=== PATIENT | male | born 1935 | race Caucasian/White ===

== ENCOUNTER 2018-04-26 08:44 | Emergency (ER) | payer OTHER, MEDICARE ==
[2018-04-26] MEDS ORDERED: Sodium Chloride 0.9% 10 ML Syringe FLUSH PRN (08:52)
[2018-04-26] MEDS ORDERED: Sodium Chloride 0.9% 1,000 ML IV ONE (08:54)
[2018-04-26] MEDS ORDERED: Ondansetron 4 MG/2 ML SDV IVPUSH ONE (08:54)
[2018-04-26] MEDS ORDERED: cefTRIAXone 2 GM Vial IVPUSH ONE (09:10)
--- NOTE | 2018-04-26 09:45 | EDM.PDOC ---
ED HPI GENERAL MEDICAL PROBLEM - General Chief Complaint: Fever Stated Complaint: ER Time Seen by Provider: 04/26/18 08:50 Source of Information: Reports: Patient, Old Records, RN, RN Notes Reviewed History Limitations: Reports: Other (poor historian) - History of Present Illness INITIAL COMMENTS - FREE TEXT/NARRATIVE: Patient is brought to the emergency room at [facility] for lethargy, fevers , possible infection. The patient is a resident at [facility]. The caregiving staff there noticed the patient had a fever of 104 orally. The patient had stated that he did not feel very well. Therefore the ambulance was called and the patient was brought to the emergency room for further assessment and treatment. The patient currently denies any chest pain. The patient denies any shortness of breath. The patient states that he does feel hot. The patient states he feels somewhat confused. The patient denies any diarrhea but has had emesis upon arrival to the emergency room. The patient has not had any focal neurological deficits. The patient is currently being seen by the wound clinic at the [facility]. The patient is a poorly compliant diabetic and has developed severe diabetic neuropathy and now has developed ulcers on his right foot. 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 Onset: Unknown/Unsure - Related Data Allergies Allergy/AdvReac Type Severity Reaction Status Date / Time No Known Allergies Allergy Verified 04/26/18 08:51 ED ROS GENERAL - Review of Systems Review Of Systems: See Below Constitutional: Reports: Fever, Chills, Weakness Respiratory: Denies: Shortness of Breath, Cough Cardiovascular: Denies: Chest Pain, Palpitations GI/Abdominal: Reports: Nausea. Denies: Abdominal Pain, Vomiting Skin: Reports: Wound (right foot) Neurological: Reports: Confusion ED EXAM, SEPSIS - Physical Exam Exam: See Below Exam Limited By: No Limitations General Appearance: Alert, No Apparent Distress Respiratory/Chest: No Respiratory Distress, Lungs Clear, Decreased Breath Sounds Cardiovascular: Regular Rate, Rhythm, Tachycardia Peripheral Pulses: 2+: Radial (L), Radial (R) GI/Abdominal Exam: Soft, Non-Tender, Abnormal Bowel Sounds (Hypoactive) Neurological: Alert, Disoriented Skin: Warm, Dry, Wound/Incision (Diabetic ulcers to the right lower extremity/ foot) EKG INTERPRETATION EKG Date: 04/26/18 Time: 09:55 Rhythm: Other Rate (Beats/Min): 105 [place]: Normal P-Wave: Present QRS: Normal ST-T: Normal QT: Normal AK/PQ Interval: 0.22 Comparison: NA - No Prior EKG EKG Interpretation Comments: 1. Sinus Tachycardia with 1st degree AVB 2. Possible right ventricular conduction delay 3. Anterolateral TN, age indeterminate Course - Vital Signs Last Recorded V/S: Last Vital Signs Temp 39.8 C H 04/26/18 10:01 Pulse 122 H 04/26/18 08:44 Resp 24 H 04/26/18 08:44 BP 116/69 04/26/18 08:44 Pulse Ox 94 L 04/26/18 08:44 - Orders/Labs/Meds Orders: Active Orders 24 hr Category Date Time Status EKG 12 Lead [EKG Documentation Completion] [RC] STAT Care 04/26/18 08:52 Active Chest 1V Frontal [CR] Stat Exams 04/26/18 08:51 Taken CULTURE BLOOD [BC] Stat Lab 04/26/18 09:07 Results CULTURE BLOOD [BC] Stat Lab 04/26/18 09:14 Results Sodium Chloride 0.9% [Saline Flush] Med 04/26/18 08:52 Active 10 ml FLUSH ASDIRECTED PRN Blood Culture x2 Reflex Set [OM.PC] Stat Oth 04/26/18 08:51 Ordered Peripheral IV Insertion Adult [OM.PC] Routine Oth 04/26/18 08:52 Ordered Medication Orders Sodium Chloride (Saline Flush) 10 ml FLUSH ASDIRECTED PRN PRN Reason: Keep Vein Open Labs: Laboratory Tests 04/26/18 04/26/18 04/26/18 Range/Units 09:07 09:07 09:07 WBC 21.4 H* (4.0-10.0) x10^3/uL RBC 4.43 L (4.5-6.0) x10^6/uL Hgb 13.6 L (14.0-18.0) g/dL Hct 39.9 L (40.0-52.0) % MCV 90.1 (78.0-93.0) fL MCH 30.7 (26.0-32.0) pg MCHC 34.1 (32.0-36.0) g/dL RDW Coeff of Karen 13.2 (10.0-15.0) % Plt Count 285 (130-400) x10^3/uL Add Manual Diff Yes Neutrophils % (Manual) 94 H (50-80) % Band Neutrophils % 1 (0-6) % Lymphocytes % (Manual) 5 L (25-50) % Platelet Estimate Adequate Sodium 138 (136-145) mmol/L Potassium 4.4 (3.5-5.1) mmol/L Chloride 105 (98-107) mmol/L Carbon Dioxide 22 (21-32) mmol/L Anion Gap 15.4 (10-20) mmol/L BUN 21 H (7-18) mg/dL Creatinine 1.7 H (0.70-1.30) mg/dL Est Cr Clr Drug Dosing TNP Estimated GFR (MDRD) 39 Glucose 204 H (74-106) mg/dL Lactic Acid 2.1 H* (0.4-2.0) mmol/L Calcium 8.5 (8.5-10.1) mg/dL Corrected Calcium 9.14 (8.5-10.1) mg/dL Total Bilirubin 0.8 (0.2-1.0) mg/dL AST 19 (15-37) U/L ALT 15 L (16-63) U/L Alkaline Phosphatase 121 H (46-116) U/L C-Reactive Protein 11.4 H (<=0.9) mg/dL Total Protein 7.2 (6.4-8.2) g/dL Albumin 3.2 L (3.4-5.0) g/dL Globulin 4.0 Albumin/Globulin Ratio 0.80 Meds: Medications Generic Name Dose Route Start Last Admin Trade Name Freq PRN Reason Stop Dose Admin Sodium Chloride 10 ml 04/26/18 08:52 Saline Flush FLUSH ASDIRECTED PRN Keep Vein Open Discontinued Medications Generic Name Dose Route Start Last Admin Trade Name Freq PRN Reason Stop Dose Admin Acetaminophen 1,000 mg 04/26/18 09:57 04/26/18 10:01 Tylenol Extra Strength PO 04/26/18 09:58 1,000 mg ONETIME ONE Administration Ceftriaxone Sodium 2 gm 04/26/18 09:10 04/26/18 09:15 Rocephin IVPUSH 04/26/18 09:11 2 gm STAT ONE Administration Sodium Chloride 1,000 mls @ 999 mls/hr 04/26/18 08:54 04/26/18 09:08 Normal Saline IV 04/26/18 09:54 999 mls/hr ONETIME ONE Administration Ondansetron HCl 4 mg 04/26/18 08:54 04/26/18 09:09 Zofran IVPUSH 04/26/18 08:55 4 mg ONETIME ONE Administration - Radiology Interpretation Free Text/Narrative:: CXR: Bibasilar hypoventilatory changes; slight increase in pulmonary vascularity See scanned report in EMR Departure - Departure Time of Disposition: 10:56 Disposition: DC/Tfer to [facility] 02 Condition: Fair Clinical Impression: Dehydration, Foot infection Sepsis Qualifiers: Sepsis type: sepsis due to unspecified organism Qualified Code(s): A41.9 - Sepsis, unspecified organism Uncontrolled diabetes mellitus Qualifiers: Diabetes mellitus type: type 1 Diabetes mellitus complication status: with skin complications Diabetes mellitus complication detail: with foot ulcer Qualified Code(s): E10.621 - Type 1 diabetes mellitus with foot ulcer; L97.509 - Non-pressure chronic ulcer of other part of unspecified foot with unspecified severity; E10.65 - Type 1 diabetes mellitus with hyperglycemia - Discharge Information Forms: Interfacility Transfer [facility] ED Communication - ED Communication Date/Time Date: 04/26/18 Time Called: 10:48 - Discussed Case With (1) Discussed Case With (1): Admitting Provider (Dr. Tran, Hospitalist.) - Conversation Summary Admitting Provider Agreed to Patient's Admission: Yes Patient Aware of Amendments fo Care Plan: Yes - Problem List Review Problem List Initiated/Reviewed/Updated: Yes - My Orders Last 24 Hours: My Active Orders 04/26/18 08:51 Chest 1V Frontal [CR] Stat Blood Culture x2 Reflex Set [OM.PC] Stat 04/26/18 08:52 EKG 12 Lead [EKG Documentation Completion] [RC] STAT Sodium Chloride 0.9% [Saline Flush] 10 ml FLUSH ASDIRECTED PRN Peripheral IV Insertion Adult [OM.PC] Routine 04/26/18 09:07 CULTURE BLOOD [BC] Stat 04/26/18 09:14 CULTURE BLOOD [BC] Stat - Assessment/Plan Last 24 Hours: My Active Orders 04/26/18 08:51 Chest 1V Frontal [CR] Stat Blood Culture x2 Reflex Set [OM.PC] Stat 04/26/18 08:52 EKG 12 Lead [EKG Documentation Completion] [RC] STAT Sodium Chloride 0.9% [Saline Flush] 10 ml FLUSH ASDIRECTED PRN Peripheral IV Insertion Adult [OM.PC] Routine 04/26/18 09:07 CULTURE BLOOD [BC] Stat 04/26/18 09:14 CULTURE BLOOD [BC] Stat Assessment:: Sepsis Dehydration Right foot infection Uncontrolled DM Plan: Case discussed with Dr. Tran, Hospitalist. Patient accepted in transfer as the [facility] does not have any bed availability. Patient will be transferred via BLS ground. Family aware.
[2018-04-26 09:48] LABS: CHLORIDE,CL 105 mmol/L (98-107); SODIUM,NA 138 mmol/L (136-145)
[2018-04-26] MEDS ORDERED: Acetaminophen 500 MG Tab PO ONE (09:57)
== END 2018-04-26 12:10 | disposition short-term general hospital (02) ==
LOC: VM.ED 08:44
DX: A41.9 Sepsis, unspecified organism (principal); E10.621 Type 1 diabetes mellitus with foot ulcer; L97.519 Non-pressure chronic ulcer of other part of right foot with unspecified severity; L08.9 Local infection of the skin and subcutaneous tissue, unspecified; E86.0 Dehydration
CPT/HCPCS: 36415; 71045; 80053; 83605; 85025; 86140; 87040; 87077; 93005; 96361; 96374; 96375; 99284; 99285; A9270; J0696; J2405; J7030

== ENCOUNTER 2018-05-01 11:24 | Inpatient (IN) | payer OTHER, MEDICARE ==
[2018-05-02] MEDS ORDERED: Furosemide 20 MG Tab PO SCH (17:00)
[2018-05-02] MEDS ORDERED: Polyethylene Glycol 3350 Powder 17 GM Packet PO PRN (17:41)
[2018-05-02] MEDS ORDERED: Aluminum Hydroxide/Magnesium Hydroxide/Simethicone Susp 30 ML Cup PO PRN (17:41)
[2018-05-02] MEDS ORDERED: Docusate Sodium 100 MG Cap PO PRN (17:41)
[2018-05-02] MEDS ORDERED: Carvedilol 6.25 MG Tab PO SCH (18:00)
[2018-05-02] MEDS: Carvedilol 6.25 MG Tab PO SCH (18:43)
[2018-05-02] MEDS ORDERED: CEPHALEXIN 500 MG PO SCH (20:00)
[2018-05-02] MEDS: Potassium Chloride 10% 20 MEQ/15 ML Soln 15 ML UD Cup PO SCH (20:13)
[2018-05-02] MEDS: Cephalexin 500 MG Cap PO SCH (20:13)
[2018-05-02] MEDS: Furosemide 20 MG Tab PO SCH (20:14)
[2018-05-03] MEDS ORDERED: Lisinopril 5 MG Tab PO SCH (08:00)
[2018-05-03] MEDS ORDERED: Aspirin 81 MG Tab.EC PO SCH (08:00)
[2018-05-03] MEDS ORDERED: Tamsulosin 0.4 MG Cap.ER PO SCH (08:00)
[2018-05-03] MEDS: INSULIN GLARGINE HUMAN REC ANALOG 100 UNIT/ML SUBCUT SCH (08:47)
[2018-05-03] MEDS: Cephalexin 500 MG Cap PO SCH ×2 (08:49→19:52)
[2018-05-03] MEDS: Carvedilol 6.25 MG Tab PO SCH ×2 (08:49→10:21)
[2018-05-03] MEDS: Furosemide 20 MG Tab PO SCH ×3 (08:49→16:56)
[2018-05-03] MEDS: Lisinopril 5 MG Tab PO SCH ×2 (08:49→10:22)
[2018-05-03] MEDS: Tamsulosin 0.4 MG Cap.ER PO SCH (08:49)
[2018-05-03] MEDS: Aspirin 81 MG Tab.EC PO SCH ×2 (08:50→10:22)
[2018-05-03] MEDS: Potassium Chloride 10% 20 MEQ/15 ML Soln 15 ML UD Cup PO SCH ×2 (08:51→10:22)
--- NOTE | 2018-05-03 12:02 | PCM.HP ---
H&P History of Present Illness - General Date of Service: 05/02/18 Admit Problem/Dx: Admission Diagnosis/Problem Admission Diagnosis/Problem Sepsis Weakness Deconditioning Mild Systolic Dysfunction Uncontrolled Diabetes Mellitus Right lower extremity ulcer CKD Obesity RLS Source of Information: Old Records, RN, RN Notes Reviewed History Limitations: Reports: Other (Poor historian) - History of Present Illness Initial Comments - Free Text/Narative: NOTE: This patient was seen and examined by me as an [facility] provider Elizabeth Allen is an 82 yo male who initially present to the Emergency Room at [facility] on 04/26/2018 for fever, nausea, and just not feeling well. During his ER visit, he was found to be septic with possible source of a right foot ulcer infection. Patient was subsequently transferred to [facility] for definitive care. Patient was seen by IM, Cardiology, Podiatry, ID, and wound clinic for his presenting problems. Cardiology optimized his medications. Echo on 04/27/2018 show a reduced EF of 45-50% with systolic dysfunction. Patient underwent an MRI of the right foot which did not show any osteomyelitis. Per ID, Patient was started on Cephalexin and Azithromax pending BC results. Infectious Disease recommend Zosyn until culture results. Patient was discharge on Keflex 500 mg QID for 5 days. Patient remained hemodynamically stable during his stay at [facility]. Physical and Occupational therapy recommended further therapy with skilled services. Patient is a poor historian. He currently denies any chest pain or SOB. He is having problems with urination. He did have a hardy catheter placed while at [facility] but that was removed on day of discharge. He does not complain of any pain. His appetite has been ok. He appears to be fairly weak and debilitated. Onset of Symptoms: Reports: Unknown/Unsure - Related Data Allergies/Adverse Reactions: Allergies Allergy/AdvReac Type Severity Reaction Status Date / Time No Known Allergies Allergy Verified 05/02/18 16:36 Home Medications: Home Meds Aspirin [Ecotrin] 81 mg PO DAILY 05/02/18 [History] Carvedilol [Coreg] 6.25 mg PO BIDMEALS 05/02/18 [History] Cephalexin 500 mg PO BID 05/02/18 [History] Furosemide [Lasix] 20 mg PO BID 05/02/18 [History] Insulin Glarg,Human.Rec.Analog [Lantus] 40 unit SUBCUT DAILY 05/02/18 [History] Lisinopril [Prinivil] 5 mg PO DAILY 05/02/18 [History] Potassium Chloride [Potassium Chloride Solution] 40 meq PO BID 05/02/18 [History ] Tamsulosin [Tamsulosin 24 Hr] 0.4 mg PO DAILY 05/02/18 [History] Past Medical History HEENT History: Reports: Hard of Hearing Other HEENT History: nonproliferative retinopathy Cardiovascular History: Reports: Heart Failure, High Cholesterol, Hypertension, PVD Gastrointestinal History: Reports: GERD Genitourinary History: Reports: Other (See Below) Other Genitourinary History: CKD Musculoskeletal History: Reports: Amputation, Other (See Below) Other Musculoskeletal History: BKA left leg Neurological History: Reports: Neuropathy, Peripheral, Other (See Below) Other Neuro History: restless legs Endocrine/Metabolic History: Reports: Diabetes Mellitus, Type 3c Dermatologic History: Reports: Other (See Below) Other Dermatologic History: Stage II pressure ulcer to R heel. Venous stasis ulcer to right dorsal foot Social & Family History - Family History Family Medical History: Noncontributory - Tobacco Use Smoking Status *Q: Former Smoker Used Tobacco, but Quit: Yes Month/Year Tobacco Last Used: 44 years ago Tobacco Use Comment: Pt quit smoking 44 years ago, does not need information. - Caffeine Use Caffeine Use: Reports: Coffee - Recreational Drug Use Recreational Drug Use: No - Living Situation & Occupation Living situation: Reports: Assisted Living Occupation: Retired H&P Review of Systems - Review of Systems: Review Of Systems: See Below General: Reports: Weakness. Denies: Fever, Chills Pulmonary: Denies: Shortness of Breath, Cough Cardiovascular: Denies: Chest Pain, Palpitations Gastrointestinal: Denies: Abdominal Pain, Nausea, Vomiting Skin: Reports: Wound Neurological: Reports: Confusion Exam - Exam Exam: See Below - Vital Signs Vital Signs: Last Vital Signs Temp 37.0 C 05/03/18 06:00 Pulse 68 05/03/18 06:00 Resp 19 05/03/18 06:00 BP 141/57 H 05/03/18 06:00 Pulse Ox 96 05/03/18 06:00 Weight: 158.757 kg - Exam Quality Assessment: Skin Breakdown General: Alert, Cooperative. 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 Sloughing of tissue b/t 4th and 5th digits with scant purulence. Bottom of foot 7 x 3.5; scab right lateral 1.5 x 1.7; Right upper anterior leg 1.7 x 2.2; lower lateral leg 1.9 x 2) Neuro Extensive - Mental Status: Alert, Disorientation to Place, Disorientation to Time - Patient Data Lab Results Last 24 hrs: Laboratory Results - last 24 hr 05/02/18 05/02/18 05/03/18 Range/Units 17:14 20:11 06:13 POC Glucose 174 H 237 H 201 H (74-106) mg/dL *Q Meaningful Use (ADM) - VTE *Q VTE Mechanical Contraindications *Q: At Risk for Falls - Problem List (1) Sepsis SNOMED Code(s): 67434340 ICD Code: A41.9 - SEPSIS, UNSPECIFIED ORGANISM Status: Resolved Priority : Medium Current Visit: No Onset Date: ~04/26/18 Qualifiers: Sepsis type: sepsis due to unspecified organism Qualified Code(s): A41.9 - Sepsis, unspecified organism (2) Weakness SNOMED Code(s): 34834443 ICD Code: R53.1 - WEAKNESS Status: Acute Priority: Medium Current Visit : Yes Onset Date: ~04/26/18 (3) Physical deconditioning SNOMED Code(s): 30436459725040 ICD Code: R53.81 - OTHER MALAISE Status: Acute Priority: Medium Current Visit: Yes Onset Date: ~04/26/18 (4) Uncontrolled diabetes mellitus SNOMED Code(s): 526408392, 997284012 ICD Code: E11.65 - TYPE 2 DIABETES MELLITUS WITH HYPERGLYCEMIA Status: Chronic Priority: Medium Current Visit: Yes Qualifiers: Diabetes mellitus type: type 1 Diabetes mellitus complication status: with skin complications Diabetes mellitus complication detail: with foot ulcer Qualified Code(s): E10.621 - Type 1 diabetes mellitus with foot ulcer; L97.509 - Non-pressure chronic ulcer of other part of unspecified foot with unspecified severity; E10.65 - Type 1 diabetes mellitus with hyperglycemia (5) Congestive heart failure SNOMED Code(s): 67599832 ICD Code: I50.9 - HEART FAILURE, UNSPECIFIED Status: Chronic Priority: Medium Current Visit: No Qualifiers: Heart failure type: systolic Heart failure chronicity: chronic Qualified Code(s): I50.22 - Chronic systolic (congestive) heart failure (6) Essential hypertension SNOMED Code(s): 90438602 ICD Code: I10 - ESSENTIAL (PRIMARY) HYPERTENSION Status: Chronic Priority : Medium Current Visit: No (7) Chronic kidney disease SNOMED Code(s): 420681238 ICD Code: N18.9 - CHRONIC KIDNEY DISEASE, UNSPECIFIED Status: Chronic Priority: Medium Current Visit: No Qualifiers: Chronic kidney disease stage: unspecified stage Qualified Code(s): N18.9 - Chronic kidney disease, unspecified (8) Peripheral vascular disease in diabetes mellitus SNOMED Code(s): 18257396, 332673980, 82305230829063 ICD Code: E11.51 - TYPE 2 DIABETES W DIABETIC PERIPHERAL ANGIOPATH W/O GANGRENE Status: Chronic Priority: Medium Current Visit: No (9) Mixed hyperlipidemia SNOMED Code(s): 401815891 ICD Code: E78.2 - MIXED HYPERLIPIDEMIA Status: Chronic Priority: Medium Current Visit: No (10) BPH (benign prostatic hyperplasia) SNOMED Code(s): 455929053 ICD Code: N40.0 - BENIGN PROSTATIC HYPERPLASIA WITHOUT LOWER URINRY TRACT SYMP Status: Chronic Priority: Low Current Visit: No Qualifiers: Lower urinary tract symptom presence: symptoms present Lower urinary tract symptom detail: unspecified Qualified Code(s): N40.1 - Benign prostatic hyperplasia with lower urinary tract symptoms Problem List Initiated/Reviewed/Updated: Yes Orders Last 24hrs: Active Orders 24 hr Category Date Time Status Patient Status [ADT] Routine ADT 05/02/18 17:41 Active Accu Check [Blood Glucose Check, Bedside] [RC] 07,11,17 Care 05/02/18 17:44 Active ,20 Dietary Supplements [RC] 07,17 Care 05/03/18 06:18 Active Height and Weight [RC] 07 Care 05/02/18 17:42 Active Intake and Output [RC] ,18 Care 05/02/18 17:42 Active May Shower [RC] .PRN Care 05/02/18 17:41 Active Oxygen Therapy [RC] .PRN Care 05/02/18 17:41 Active Up ad Jocelin [RC] .PRN Care 05/02/18 17:41 Active VTE/DVT Education [RC] .PRN Care 05/02/18 17:41 Active Vital Signs [RC] , Care 05/02/18 17:41 Active Consult to Case Management [CONS] Routine Cons 05/02/18 17:41 Active OT Evaluation and Treatment [CONS] Routine Cons 05/02/18 17:41 Active PT Evaluation and Treatment [CONS] Routine Cons 05/02/18 17:41 Active Acetaminophen [Tylenol] Med 05/02/18 17:41 Active 650 mg PO Q4H PRN Alum Hydrox/Mag Hydrox/Simeth [Mag-Al Plus] Med 05/02/18 17:41 Active 30 ml PO Q4H PRN Aspirin [Halfprin] Med 05/03/18 08:00 Active 81 mg PO DAILY Carvedilol [Coreg] Med 05/02/18 18:00 Active 6.25 mg PO BIDMEALS Cephalexin [Keflex] Med 05/02/18 20:00 Active 500 mg PO BID Docusate Sodium [Colace] Med 05/02/18 17:41 Active 100 mg PO BID PRN Furosemide [Lasix] Med 05/02/18 20:00 Active 20 mg PO BIDDIURETIC Insulin Glarg,Human.Rec.Analog [LantUS Solostar] Med 05/03/18 08:00 Active 0 units SUBCUT DAILY Lisinopril [Prinivil] Med 05/03/18 08:00 Active 5 mg PO DAILY Ondansetron [Zofran ODT] Med 05/02/18 17:41 Active 4 mg PO Q6H PRN Polyethylene Glycol 3350 [MiraLAX] Med 05/02/18 17:41 Active 17 gm PO DAILY PRN Potassium Chloride [Potassium Chloride Solution] Med 05/02/18 20:00 Active 40 meq PO BID Tamsulosin [Flomax] Med 05/03/18 08:00 Active 0.4 mg PO DAILY Resuscitation Status Routine Resus Stat 05/02/18 17:41 Ordered Medication Orders Acetaminophen (Tylenol) 650 mg PO Q4H PRN PRN Reason: Pain (Mild 1-3)/fever Al Hydroxide/Mg Hydroxide (Mag-Al Plus) 30 ml PO Q4H PRN PRN Reason: Nausea Aspirin (Halfprin) 81 mg PO DAILY [facility] Last Admin: 05/03/18 10:22 Dose: Not Given Carvedilol (Coreg) 6.25 mg PO BIDMEALS [facility] Last Admin: 05/03/18 10:21 Dose: Not Given Admin: 05/02/18 18:43 Dose: 6.25 mg Cephalexin (Keflex) 500 mg PO BID [facility] Stop: 05/06/18 08:01 Last Admin: 05/03/18 08:49 Dose: 500 mg Admin: 05/02/18 20:13 Dose: 500 mg Docusate Sodium (Colace) 100 mg PO BID PRN PRN Reason: Constipation Furosemide (Lasix) 20 mg PO BIDDIURETIC [facility] Last Admin: 05/03/18 10:20 Dose: Not Given Admin: 05/02/18 20:14 Dose: Insulin Glargine (Lantus Solostar) 0 units SUBCUT DAILY [facility] Last Admin: 05/03/18 08:47 Dose: 40 units Lisinopril (Prinivil) 5 mg PO DAILY [facility] Last Admin: 05/03/18 10:22 Dose: Not Given Ondansetron HCl (Zofran Odt) 4 mg PO Q6H PRN PRN Reason: nausea, able to take PO Polyethylene Glycol (Miralax) 17 gm PO DAILY PRN PRN Reason: Constipation Potassium Chloride (Potassium Chloride Solution) 40 meq PO BID [facility] Last Admin: 05/03/18 10:22 Dose: Not Given Admin: 05/02/18 20:13 Dose: 40 meq Tamsulosin HCl (Flomax) 0.4 mg PO DAILY [facility] Last Admin: 05/03/18 08:49 Dose: 0.4 mg Assessment/Plan Comment:: 82 yo male with a past medical history of CHF, Uncontrolled DM, CKD, HTN, and PVD is admitted to the Swing Bed unit at [facility] for chcf care for weakness and deconditioning secondary to recent sepsis from a right foot ulcer. 1. Sepsis - continue with Keflex 500 mg QID for 5 days; monitor vital signs, fevers 2. Weakness - PT/OT consults; work on ambulation 3. Deconditioning - PT/OT 4. Uncontrolled DM - continue with Glargine 40 units daily; will start high does SSI due to infection and elevated blood sugars 5. CHF - will increase Coreg and Lisinopril and see how the patient does; EF 45- 50%, on ASA 81 daily 6. CKD- no NSAIDS; encourage fluids; tight glycemic control; needs Nephrology referral at discharge 7. Foot ulcers - continue with dressing changes per discharge order from [facility]; continue with Wound clinic at [place] once discharged 8. BPH - Continue Flomax; if unable to void, may need to reinsert catheter 9. HTN - continue Lisinopril, will increase to 10 mg daily for better BP control 10. Mixed HLD - will start low dose Lipitor Patient is a Code 2. Patient will be transferred to a higher level of care shoulder the need arise. Will stay in contact with the [facility] when discharge gets closer. Patient will need to continued with wound clinic and referral to Nephrology. [facility] for [facility]iology, ID, and Podiatry. Will check labs in AM on 05/04/2018. Will start PT/OT on 05/04/2018 due to holiday. I am not totally convince this patient will be able to go back to Assisted Living given his multiple co-morbid problems. Will reassess closer to discharge. May need NH placement. NOTE: This patient was seen and examined by me as an [facility] Provider.
[2018-05-03] MEDS: Acetaminophen 325 MG Tab PO PRN (15:10)
[2018-05-03] MEDS: Ondansetron 4 MG Tab.DIS PO PRN (17:24)
[2018-05-03] MEDS: Insulin Regular, Human 100 Units/ML 3 ML Vial SUBCUT SCH (17:31)
[2018-05-03] MEDS: Carvedilol 12.5 MG Tab PO SCH (17:46)
[2018-05-03] MEDS: atorvaSTATin 10 MG Tab PO SCH ×2 (19:52→20:00)
[2018-05-03] MEDS: Potassium Chloride 20 MEQ Tab.ER PO SCH ×2 (19:53→20:00)
[2018-05-03] MEDS ORDERED: Potassium Chloride 10 MEQ Tab.ER PO SCH (20:00)
[2018-05-04] MEDS: Acetaminophen 325 MG Tab PO PRN (00:09)
[2018-05-04] MEDS: Insulin Regular, Human 100 Units/ML 3 ML Vial SUBCUT SCH ×3 (06:50→17:51)
[2018-05-04] MEDS: Carvedilol 12.5 MG Tab PO SCH ×2 (08:16→19:02)
[2018-05-04] MEDS: Cephalexin 500 MG Cap PO SCH ×2 (08:17→19:45)
[2018-05-04] MEDS: Tamsulosin 0.4 MG Cap.ER PO SCH (08:17)
[2018-05-04] MEDS: Aspirin 81 MG Tab.EC PO SCH (08:17)
[2018-05-04] MEDS: Potassium Chloride 20 MEQ Tab.ER PO SCH ×2 (08:18→19:46)
[2018-05-04] MEDS: Furosemide 20 MG Tab PO SCH ×2 (08:18→16:22)
[2018-05-04] MEDS: Lisinopril 10 MG Tab PO SCH (08:19)
[2018-05-04] MEDS: INSULIN GLARGINE HUMAN REC ANALOG 100 UNIT/ML SUBCUT SCH (08:32)
[2018-05-04] MEDS: atorvaSTATin 10 MG Tab PO SCH (19:46)
[2018-05-05] MEDS: Insulin Regular, Human 100 Units/ML 3 ML Vial SUBCUT SCH ×3 (06:41→17:55)
[2018-05-05] MEDS: Tamsulosin 0.4 MG Cap.ER PO SCH (08:57)
[2018-05-05] MEDS: Aspirin 81 MG Tab.EC PO SCH (08:57)
[2018-05-05] MEDS: Carvedilol 12.5 MG Tab PO SCH (08:57)
[2018-05-05] MEDS: Potassium Chloride 20 MEQ Tab.ER PO SCH ×2 (08:58→20:15)
[2018-05-05] MEDS: Cephalexin 500 MG Cap PO SCH ×3 (08:58→20:15)
[2018-05-05] MEDS: INSULIN GLARGINE HUMAN REC ANALOG 100 UNIT/ML SUBCUT SCH (08:59)
[2018-05-05] MEDS: Furosemide 20 MG Tab PO SCH ×2 (09:01→17:54)
[2018-05-05] MEDS: Lisinopril 10 MG Tab PO SCH (09:01)
[2018-05-05 12:57] LABS: ANION GAP 13.2 mmol/L (10-20)
[2018-05-05] MEDS ORDERED: Furosemide 40 MG Tab PO ONE (13:53)
[2018-05-05] MEDS: Carvedilol 6.25 MG Tab PO SCH (17:55)
[2018-05-05] MEDS: atorvaSTATin 10 MG Tab PO SCH (20:14)
[2018-05-06] MEDS: Insulin Regular, Human 100 Units/ML 3 ML Vial SUBCUT SCH ×3 (06:18→16:57)
[2018-05-06] MEDS: Carvedilol 6.25 MG Tab PO SCH ×2 (08:33→18:26)
[2018-05-06] MEDS: Tamsulosin 0.4 MG Cap.ER PO SCH (08:34)
[2018-05-06] MEDS: Cephalexin 500 MG Cap PO SCH ×4 (08:34→19:39)
[2018-05-06] MEDS: Aspirin 81 MG Tab.EC PO SCH (08:34)
[2018-05-06] MEDS: Potassium Chloride 20 MEQ Tab.ER PO SCH ×2 (08:35→19:39)
[2018-05-06] MEDS: Lisinopril 10 MG Tab PO SCH (08:35)
[2018-05-06] MEDS: Furosemide 20 MG Tab PO SCH ×2 (08:35→16:57)
[2018-05-06] MEDS: INSULIN GLARGINE HUMAN REC ANALOG 100 UNIT/ML SUBCUT SCH (08:50)
--- NOTE | 2018-05-06 11:48 | PCM.PN ---
- General Info Date of Service: 05/05/18 Admission Dx/Problem (Free Text): Admission Diagnosis/Problem Admission Diagnosis/Problem Sepsis Weakness Deconditioning Mild Systolic Dysfunction Uncontrolled Diabetes Mellitus Right lower extremity ulcer CKD Obesity RLS Subjective Update: Patient states he does feel weak. He is having trouble sleeping due to positioning problems in bed. He denies any chest pain. Patient denies any SOB. No issues with BM's or urination. His appetite has been ok. Patient offers no specific complaints today. Functional Status: Reports: Pain Controlled, Tolerating Diet Pain Score: 0 - Review of Systems General: Reports: Weakness. Denies: Fever, Fatigue Pulmonary: Denies: Shortness of Breath, Cough Cardiovascular: Denies: Chest Pain, Palpitations Gastrointestinal: Denies: Abdominal Pain, Nausea, Vomiting Skin: Reports: Other (wound to RLE/foot) Neurological: Denies: Dizziness, Headache - Patient Data Vitals - Most Recent: Last Vital Signs Temp 36.8 C 05/06/18 06:00 Pulse 62 05/06/18 08:33 Resp 20 05/06/18 06:00 BP 132/60 05/06/18 08:33 Pulse Ox 96 05/06/18 06:00 Weight - Most Recent: 139.888 kg I&O - Last 24 Hours: Intake & Output 05/05/18 05/06/18 05/06/18 22:59 06:59 14:59 Intake Total 840 480 360 Output Total 800 Balance 840 -320 360 Lab Results Last 24 Hours: Laboratory Results - last 24 hr 05/05/18 05/05/18 05/05/18 Range/Units 06:32 12:18 17:50 Sodium 142 (136-145) mmol/L Potassium 4.2 (3.5-5.1) mmol/L Chloride 107 (98-107) mmol/L Carbon Dioxide 26 (21-32) mmol/L Anion Gap 13.2 (10-20) mmol/L BUN 32 H (7-18) mg/dL Creatinine 1.8 H (0.70-1.30) mg/dL Est Cr Clr Drug Dosing 37.16 mL/min Estimated GFR (MDRD) 36 Glucose 219 H (74-106) mg/dL POC Glucose 117 H 182 H (74-106) mg/dL Calcium 8.0 L (8.5-10.1) mg/dL Magnesium 2.0 (1.8-2.4) mg/dL NT-Pro-B Natriuret Pep 4174 H (<=450) pg/mL 05/05/18 05/06/18 Range/Units 20:08 06:17 Sodium (136-145) mmol/L Potassium (3.5-5.1) mmol/L Chloride (98-107) mmol/L Carbon Dioxide (21-32) mmol/L Anion Gap (10-20) mmol/L BUN (7-18) mg/dL Creatinine (0.70-1.30) mg/dL Est Cr Clr Drug Dosing mL/min Estimated GFR (MDRD) Glucose (74-106) mg/dL POC Glucose 183 H 127 H (74-106) mg/dL Calcium (8.5-10.1) mg/dL Magnesium (1.8-2.4) mg/dL NT-Pro-B Natriuret Pep (<=450) pg/mL Med Orders - Current: Current Medications Acetaminophen (Tylenol) 650 mg PO Q4H PRN PRN Reason: Pain (Mild 1-3)/fever Last Admin: 05/04/18 00:09 Dose: 650 mg Al Hydroxide/Mg Hydroxide (Mag-Al Plus) 30 ml PO Q4H PRN PRN Reason: Nausea Aspirin (Halfprin) 81 mg PO DAILY [facility] Last Admin: 05/06/18 08:34 Dose: 81 mg Atorvastatin Calcium (Lipitor) 10 mg PO BEDTIME [facility] Last Admin: 05/05/18 20:14 Dose: 10 mg Carvedilol (Coreg) 6.25 mg PO BIDMEALS [facility] Last Admin: 05/06/18 08:33 Dose: 6.25 mg Cephalexin (Keflex) 500 mg PO QID [facility] Stop: 05/06/18 20:01 Last Admin: 05/06/18 08:34 Dose: 500 mg Docusate Sodium (Colace) 100 mg PO BID PRN PRN Reason: Constipation Furosemide (Lasix) 20 mg PO BIDDIURETIC [facility] Last Admin: 05/06/18 08:35 Dose: 20 mg Insulin Glargine (Lantus Solostar) 0 units SUBCUT DAILY [facility] Last Admin: 05/06/18 08:50 Dose: 40 units Insulin Human Regular (Humulin R) 0 unit SUBCUT TIDAC [facility]; Protocol Last Admin: 05/06/18 06:18 Dose: Not Given Lisinopril (Prinivil) 10 mg PO DAILY [facility] Last Admin: 05/06/18 08:35 Dose: 10 mg Ondansetron HCl (Zofran Odt) 4 mg PO Q6H PRN PRN Reason: nausea, able to take PO Last Admin: 05/03/18 17:24 Dose: 4 mg Polyethylene Glycol (Miralax) 17 gm PO DAILY PRN PRN Reason: Constipation Potassium Chloride (Klor-Con M20) 40 meq PO BID [facility] Last Admin: 05/06/18 08:35 Dose: 40 meq Tamsulosin HCl (Flomax) 0.4 mg PO DAILY [facility] Last Admin: 05/06/18 08:34 Dose: 0.4 mg Discontinued Medications Aspirin (Halfprin) 81 mg PO WITHBREAKFAST [facility] Carvedilol (Coreg) 6.25 mg PO BIDMEALS [facility] Carvedilol (Coreg) 6.25 mg PO BIDMEALS [facility] Last Admin: 05/03/18 10:21 Dose: Not Given Carvedilol (Coreg) 12.5 mg PO BIDM [facility] Last Admin: 05/05/18 08:57 Dose: 12.5 mg Cephalexin (Keflex) 500 mg PO BID [facility] Stop: 05/06/18 08:01 Last Admin: 05/05/18 08:58 Dose: 500 mg Furosemide (Lasix) 20 mg PO BIDDIURETIC [facility] Last Admin: 05/02/18 18:42 Dose: 20 mg Furosemide (Lasix) 40 mg PO ONETIME ONE Stop: 05/05/18 13:54 Last Admin: 05/05/18 14:53 Dose: 40 mg Lisinopril (Prinivil) 5 mg PO DAILY [facility] Lisinopril (Prinivil) 5 mg PO DAILY [facility] Last Admin: 05/03/18 10:22 Dose: Not Given Non-Formulary Medication (Cephalexin [Cephalexin]) 500 mg PO BID [facility] Potassium Chloride (Potassium Chloride Solution) 40 meq PO BID [facility] Last Admin: 05/03/18 10:22 Dose: Not Given Tamsulosin HCl (Flomax) 0.4 mg PO DAILY [facility] - Exam Quality Assessment: Skin Breakdown General: Alert, Cooperative, No Acute Distress Lungs: Normal Respiratory Effort, Decreased Breath Sounds, Crackles (bibasilar) Cardiovascular: Regular Rate, Regular Rhythm, No Murmurs GI/Abdominal Exam: Normal Bowel Sounds, Soft, Non-Tender Peripheral Pulses: 2+: Radial (L), Radial (R) Skin: Warm, Dry, Other (see H&P) Wound/Incisions: Healing Well, Dressing Dry and Intact Neurological: No New Focal Deficit - Problem List & Annotations (1) Weakness SNOMED Code(s): 03729119 Code(s): R53.1 - WEAKNESS Status: Acute Priority: Medium Current Visit : Yes Onset Date: ~04/26/18 (2) Physical deconditioning SNOMED Code(s): 88207093053305 Code(s): R53.81 - OTHER MALAISE Status: Acute Priority: Medium Current Visit: Yes Onset Date: ~04/26/18 (3) Uncontrolled diabetes mellitus SNOMED Code(s): 345384057, 958355954 Code(s): E11.65 - TYPE 2 DIABETES MELLITUS WITH HYPERGLYCEMIA Status: Chronic Priority: Medium Current Visit: Yes Qualifiers: Diabetes mellitus type: type 1 Diabetes mellitus complication status: with skin complications Diabetes mellitus complication detail: with foot ulcer Qualified Code(s): E10.621 - Type 1 diabetes mellitus with foot ulcer; L97.509 - Non-pressure chronic ulcer of other part of unspecified foot with unspecified severity; E10.65 - Type 1 diabetes mellitus with hyperglycemia (4) Congestive heart failure SNOMED Code(s): 34269550 Code(s): I50.9 - HEART FAILURE, UNSPECIFIED Status: Chronic Priority: Medium Current Visit: No Qualifiers: Heart failure type: systolic Heart failure chronicity: chronic Qualified Code(s): I50.22 - Chronic systolic (congestive) heart failure (5) Essential hypertension SNOMED Code(s): 89856659 Code(s): I10 - ESSENTIAL (PRIMARY) HYPERTENSION Status: Chronic Priority : Medium Current Visit: No (6) Chronic kidney disease SNOMED Code(s): 599835398 Code(s): N18.9 - CHRONIC KIDNEY DISEASE, UNSPECIFIED Status: Chronic Priority: Medium Current Visit: No Qualifiers: Chronic kidney disease stage: unspecified stage Qualified Code(s): N18.9 - Chronic kidney disease, unspecified (7) Peripheral vascular disease in diabetes mellitus SNOMED Code(s): 93952285, 669948343, 69719452870424 Code(s): E11.51 - TYPE 2 DIABETES W DIABETIC PERIPHERAL ANGIOPATH W/O GANGRENE Status: Chronic Priority: Medium Current Visit: No (8) Mixed hyperlipidemia SNOMED Code(s): 980063898 Code(s): E78.2 - MIXED HYPERLIPIDEMIA Status: Chronic Priority: Medium Current Visit: No (9) BPH (benign prostatic hyperplasia) SNOMED Code(s): 687177944 Code(s): N40.0 - BENIGN PROSTATIC HYPERPLASIA WITHOUT LOWER URINRY TRACT SYMP Status: Chronic Priority: Low Current Visit: No Qualifiers: Lower urinary tract symptom presence: symptoms present Lower urinary tract symptom detail: unspecified Qualified Code(s): N40.1 - Benign prostatic hyperplasia with lower urinary tract symptoms - Problem List Review Problem List Initiated/Reviewed/Updated: Yes - My Orders Last 24 Hours: My Active Orders 05/05/18 12:03 Chest 1V Frontal [CR] Routine 05/05/18 16:00 Cephalexin [Keflex] 500 mg PO QID 05/05/18 18:00 Carvedilol [Coreg] 6.25 mg PO BIDMEALS - Assessment Assessment:: Sepsis - resolved Weakness Deconditioning CHF Essential Hypertension RLS Chronic Kidney Disease Uncontrolled DM RLE leg/foot ulcers - Plan Plan:: 82 yo male with a past medical history of CHF, Uncontrolled DM, CKD, HTN, and PVD was admitted to the Swing Bed unit at [facility] for [facility] care for weakness and deconditioning secondary to recent sepsis from a right foot ulcer. Patient had been refusing is medications the past couple of days, which may be contributing to his fluild overload at this point. Will give an additional 40 mg of PO Lasix today. CXR has moderate vascular congestion. Need to watch I/O closely. Will recheck weight today. Patient may need to be on a fluid restriction, however, BUN and Creat are elevated from baseline. Patient encouraged he needs to take his medications as directed. Patient need to continue to mobilized his fluids with getting out of bed and ambulating. Patient will need a sleep study and Nephrology consult once his is discharged. NOTE: This patient was seen and examined by me as an [facility] Provider.
[2018-05-06] MEDS: Miconazole 2% Top Powder 45 GM Container TOP SCH ×2 (14:55→19:38)
[2018-05-06] MEDS: atorvaSTATin 10 MG Tab PO SCH (19:39)
[2018-05-07] MEDS: Insulin Regular, Human 100 Units/ML 3 ML Vial SUBCUT SCH ×3 (06:53→17:05)
[2018-05-07] MEDS: Carvedilol 6.25 MG Tab PO SCH ×2 (08:14→17:41)
[2018-05-07] MEDS: Tamsulosin 0.4 MG Cap.ER PO SCH (08:14)
[2018-05-07] MEDS: Lisinopril 10 MG Tab PO SCH (08:14)
[2018-05-07] MEDS: Miconazole 2% Top Powder 45 GM Container TOP SCH ×2 (08:15→19:42)
[2018-05-07] MEDS: Aspirin 81 MG Tab.EC PO SCH (08:15)
[2018-05-07] MEDS: Furosemide 20 MG Tab PO SCH ×2 (08:15→16:27)
[2018-05-07] MEDS: Potassium Chloride 20 MEQ Tab.ER PO SCH ×2 (08:15→19:38)
[2018-05-07] MEDS: INSULIN GLARGINE HUMAN REC ANALOG 100 UNIT/ML SUBCUT SCH (08:16)
[2018-05-07] MEDS: atorvaSTATin 10 MG Tab PO SCH (19:38)
[2018-05-08] MEDS: Insulin Regular, Human 100 Units/ML 3 ML Vial SUBCUT SCH ×3 (06:35→17:48)
[2018-05-08] MEDS: Miconazole 2% Top Powder 45 GM Container TOP SCH ×2 (07:58→20:26)
[2018-05-08] MEDS: Potassium Chloride 20 MEQ Tab.ER PO SCH ×2 (07:58→20:24)
[2018-05-08] MEDS: Furosemide 20 MG Tab PO SCH ×2 (07:58→16:31)
[2018-05-08] MEDS: Aspirin 81 MG Tab.EC PO SCH (07:58)
[2018-05-08] MEDS: Carvedilol 6.25 MG Tab PO SCH ×2 (07:58→18:15)
[2018-05-08] MEDS: Lisinopril 10 MG Tab PO SCH (07:58)
[2018-05-08] MEDS: Tamsulosin 0.4 MG Cap.ER PO SCH (07:58)
[2018-05-08] MEDS: INSULIN GLARGINE HUMAN REC ANALOG 100 UNIT/ML SUBCUT SCH (07:59)
[2018-05-08] MEDS: atorvaSTATin 10 MG Tab PO SCH (20:23)
[2018-05-08] MEDS ORDERED: Fluconazole 100 MG Tab PO ONE (20:32)
[2018-05-08] MEDS ORDERED: Nystatin Crm 30 GM Tube TOP SCH (20:45)
[2018-05-08] MEDS: Nystatin Crm 30 GM Tube TOP SCH (21:03)
[2018-05-09] MEDS: Insulin Regular, Human 100 Units/ML 3 ML Vial SUBCUT SCH ×3 (06:26→17:22)
[2018-05-09] MEDS: Aspirin 81 MG Tab.EC PO SCH (08:31)
[2018-05-09] MEDS: Tamsulosin 0.4 MG Cap.ER PO SCH (08:34)
[2018-05-09] MEDS: Carvedilol 6.25 MG Tab PO SCH ×2 (08:34→18:09)
[2018-05-09] MEDS: Potassium Chloride 20 MEQ Tab.ER PO SCH ×2 (08:34→19:57)
[2018-05-09] MEDS: Lisinopril 10 MG Tab PO SCH (08:34)
[2018-05-09] MEDS: Furosemide 20 MG Tab PO SCH ×2 (08:34→16:35)
[2018-05-09] MEDS: INSULIN GLARGINE HUMAN REC ANALOG 100 UNIT/ML SUBCUT SCH (08:34)
[2018-05-09] MEDS: Nystatin Crm 30 GM Tube TOP SCH ×2 (08:36→19:57)
[2018-05-09] MEDS: atorvaSTATin 10 MG Tab PO SCH (19:57)
[2018-05-10] MEDS: Carvedilol 6.25 MG Tab PO SCH ×2 (07:54→17:06)
[2018-05-10] MEDS: Furosemide 20 MG Tab PO SCH ×2 (07:55→15:22)
[2018-05-10] MEDS: Lisinopril 10 MG Tab PO SCH (07:55)
[2018-05-10] MEDS: Tamsulosin 0.4 MG Cap.ER PO SCH (07:55)
[2018-05-10] MEDS: Aspirin 81 MG Tab.EC PO SCH (07:55)
[2018-05-10] MEDS: Potassium Chloride 20 MEQ Tab.ER PO SCH ×2 (07:55→20:04)
[2018-05-10] MEDS: INSULIN GLARGINE HUMAN REC ANALOG 100 UNIT/ML SUBCUT SCH (07:58)
[2018-05-10] MEDS: Insulin Regular, Human 100 Units/ML 3 ML Vial SUBCUT SCH ×3 (08:01→17:06)
[2018-05-10] MEDS: Nystatin Crm 30 GM Tube TOP SCH ×2 (08:04→20:35)
[2018-05-10] MEDS: atorvaSTATin 10 MG Tab PO SCH (20:04)
[2018-05-11] MEDS: INSULIN GLARGINE HUMAN REC ANALOG 100 UNIT/ML SUBCUT SCH (07:29)
[2018-05-11] MEDS: Insulin Regular, Human 100 Units/ML 3 ML Vial SUBCUT SCH ×3 (07:30→17:06)
[2018-05-11] MEDS: Tamsulosin 0.4 MG Cap.ER PO SCH (07:32)
[2018-05-11] MEDS: Lisinopril 10 MG Tab PO SCH (07:32)
[2018-05-11] MEDS: Aspirin 81 MG Tab.EC PO SCH (07:32)
[2018-05-11] MEDS: Carvedilol 6.25 MG Tab PO SCH ×2 (07:32→17:30)
[2018-05-11] MEDS: Furosemide 20 MG Tab PO SCH (07:32)
[2018-05-11] MEDS: Potassium Chloride 20 MEQ Tab.ER PO SCH ×2 (07:33→20:18)
[2018-05-11] MEDS: Nystatin Crm 30 GM Tube TOP SCH ×2 (07:33→20:19)
[2018-05-11] MEDS: Torsemide 20 MG Tab PO SCH (15:28)
[2018-05-11] MEDS: atorvaSTATin 10 MG Tab PO SCH (20:18)
[2018-05-12] MEDS: Tamsulosin 0.4 MG Cap.ER PO SCH (09:07)
[2018-05-12] MEDS: Lisinopril 2.5 MG Tab PO SCH (09:07)
[2018-05-12] MEDS: Potassium Chloride 20 MEQ Tab.ER PO SCH ×2 (09:07→20:47)
[2018-05-12] MEDS: Torsemide 20 MG Tab PO SCH ×2 (09:07→17:25)
[2018-05-12] MEDS: Carvedilol 6.25 MG Tab PO SCH ×2 (09:07→17:25)
[2018-05-12] MEDS: Aspirin 81 MG Tab.EC PO SCH (09:07)
[2018-05-12] MEDS: INSULIN GLARGINE HUMAN REC ANALOG 100 UNIT/ML SUBCUT SCH (09:08)
[2018-05-12] MEDS: Insulin Regular, Human 100 Units/ML 3 ML Vial SUBCUT SCH ×3 (09:08→17:28)
[2018-05-12] MEDS: Nystatin Crm 30 GM Tube TOP SCH ×2 (09:09→20:48)
[2018-05-12] MEDS: Mineral Oil/Petrolatum,White Crm 454 GM Jar TOP SCH ×2 (09:09→17:25)
[2018-05-12] MEDS: atorvaSTATin 10 MG Tab PO SCH (20:48)
[2018-05-12] MEDS: Ondansetron 4 MG Tab.DIS PO PRN (20:56)
[2018-05-13] MEDS: Mineral Oil/Petrolatum,White Crm 454 GM Jar TOP SCH ×3 (03:19→18:05)
[2018-05-13] MEDS: Lisinopril 2.5 MG Tab PO SCH (09:41)
[2018-05-13] MEDS: Carvedilol 6.25 MG Tab PO SCH ×2 (09:41→18:05)
[2018-05-13] MEDS: Potassium Chloride 20 MEQ Tab.ER PO SCH ×2 (09:41→20:23)
[2018-05-13] MEDS: Torsemide 20 MG Tab PO SCH ×2 (09:41→15:28)
[2018-05-13] MEDS: Tamsulosin 0.4 MG Cap.ER PO SCH (09:41)
[2018-05-13] MEDS: Nystatin Crm 30 GM Tube TOP SCH ×2 (09:42→20:23)
[2018-05-13] MEDS: INSULIN GLARGINE HUMAN REC ANALOG 100 UNIT/ML SUBCUT SCH (09:42)
[2018-05-13] MEDS: Aspirin 81 MG Tab.EC PO SCH (09:42)
[2018-05-13] MEDS: Insulin Regular, Human 100 Units/ML 3 ML Vial SUBCUT SCH ×3 (09:42→18:07)
[2018-05-13] MEDS: Ondansetron 4 MG Tab.DIS PO PRN (20:21)
[2018-05-13] MEDS: atorvaSTATin 10 MG Tab PO SCH (20:22)
[2018-05-14] MEDS: Mineral Oil/Petrolatum,White Crm 454 GM Jar TOP SCH ×3 (03:38→17:05)
[2018-05-14] MEDS: INSULIN GLARGINE HUMAN REC ANALOG 100 UNIT/ML SUBCUT SCH (08:01)
[2018-05-14] MEDS: Potassium Chloride 20 MEQ Tab.ER PO SCH ×2 (08:01→22:20)
[2018-05-14] MEDS: Tamsulosin 0.4 MG Cap.ER PO SCH (08:01)
[2018-05-14] MEDS: Aspirin 81 MG Tab.EC PO SCH (08:02)
[2018-05-14] MEDS: Lisinopril 2.5 MG Tab PO SCH (08:02)
[2018-05-14] MEDS: Acetaminophen 325 MG Tab PO PRN (08:02)
[2018-05-14] MEDS: Torsemide 20 MG Tab PO SCH ×2 (08:02→17:05)
[2018-05-14] MEDS: Carvedilol 6.25 MG Tab PO SCH ×2 (08:02→17:15)
[2018-05-14] MEDS: Nystatin Crm 30 GM Tube TOP SCH ×2 (08:05→22:21)
[2018-05-14] MEDS: Insulin Regular, Human 100 Units/ML 3 ML Vial SUBCUT SCH ×3 (08:06→19:39)
[2018-05-14] MEDS: Ondansetron 4 MG Tab.DIS PO PRN (17:15)
[2018-05-14] MEDS: atorvaSTATin 10 MG Tab PO SCH (22:21)
[2018-05-15] MEDS: Mineral Oil/Petrolatum,White Crm 454 GM Jar TOP SCH ×2 (01:11→08:49)
[2018-05-15 08:11] LABS: ANION GAP 14.8 mmol/L (10-20)
[2018-05-15] MEDS: Potassium Chloride 20 MEQ Tab.ER PO SCH ×2 (08:48→08:57)
[2018-05-15] MEDS: Aspirin 81 MG Tab.EC PO SCH (08:48)
[2018-05-15] MEDS: Tamsulosin 0.4 MG Cap.ER PO SCH (08:48)
[2018-05-15] MEDS: Carvedilol 6.25 MG Tab PO SCH (08:48)
[2018-05-15] MEDS: Torsemide 20 MG Tab PO SCH (08:48)
[2018-05-15] MEDS: Lisinopril 2.5 MG Tab PO SCH (08:48)
[2018-05-15] MEDS: Insulin Regular, Human 100 Units/ML 3 ML Vial SUBCUT SCH ×2 (08:48→11:49)
[2018-05-15] MEDS: Nystatin Crm 30 GM Tube TOP SCH (08:49)
[2018-05-15] MEDS: INSULIN GLARGINE HUMAN REC ANALOG 100 UNIT/ML SUBCUT SCH (08:52)
--- NOTE | 2018-05-15 09:39 | PCM.DCSUM1 ---
Discharge Summary - Hospital Course HPI Initial Comments: NOTE: This patient was seen and examined by me as an [facility] provider Elizabeth Allen is an 82 yo male who initially present to the Emergency Room at [facility] on 04/26/2018 for fever, nausea, and just not feeling well. During his ER visit, he was found to be septic with possible source of a right foot ulcer infection. Patient was subsequently transferred to [facility] for definitive care. Patient was seen by IM, Cardiology, Podiatry, ID, and wound clinic for his presenting problems. Cardiology optimized his medications. Echo on 04/27/2018 show a reduced EF of 45-50% with systolic dysfunction. Patient underwent an MRI of the right foot which did not show any osteomyelitis. Per ID, Patient was started on Cephalexin and Azithromax pending BC results. Infectious Disease recommend Zosyn until culture results. Patient was discharge on Keflex 500 mg QID for 5 days. Patient remained hemodynamically stable during his stay at [facility]. Physical and Occupational therapy recommended further therapy with skilled services. Patient is a poor historian. He currently denies any chest pain or SOB. He is having problems with urination. He did have a hardy catheter placed while at [facility] but that was removed on day of discharge. He does not complain of any pain. His appetite has been ok. He appears to be fairly weak and debilitated. Diagnosis: Stroke: No Modified Jose Cruz Scale: No Symptoms at All Modified Jose Cruz Scale Score: 0 - Discharge Data Discharge Date: 05/15/18 Discharge Disposition: DC/Tfer to Acute Hospital 02 Condition: Fair - Discharge Diagnosis/Problem(s) (1) Weakness SNOMED Code(s): 10201069 ICD Code: R53.1 - WEAKNESS Status: Acute Priority: Medium Current Visit : Yes Onset Date: ~04/26/18 (2) Physical deconditioning SNOMED Code(s): 40167098531429 ICD Code: R53.81 - OTHER MALAISE Status: Acute Priority: Medium Current Visit: Yes Onset Date: ~04/26/18 (3) Uncontrolled diabetes mellitus SNOMED Code(s): 598890234, 045618557 ICD Code: E11.65 - TYPE 2 DIABETES MELLITUS WITH HYPERGLYCEMIA Status: Chronic Priority: Medium Current Visit: Yes Qualifiers: Diabetes mellitus type: type 1 Diabetes mellitus complication status: with skin complications Diabetes mellitus complication detail: with foot ulcer Qualified Code(s): E10.621 - Type 1 diabetes mellitus with foot ulcer; L97.509 - Non-pressure chronic ulcer of other part of unspecified foot with unspecified severity; E10.65 - Type 1 diabetes mellitus with hyperglycemia (4) Congestive heart failure SNOMED Code(s): 51913384 ICD Code: I50.9 - HEART FAILURE, UNSPECIFIED Status: Chronic Priority: Medium Current Visit: No Qualifiers: Heart failure type: systolic Heart failure chronicity: chronic Qualified Code(s): I50.22 - Chronic systolic (congestive) heart failure (5) Essential hypertension SNOMED Code(s): 19905494 ICD Code: I10 - ESSENTIAL (PRIMARY) HYPERTENSION Status: Chronic Priority : Medium Current Visit: No (6) Chronic kidney disease SNOMED Code(s): 830637825 ICD Code: N18.9 - CHRONIC KIDNEY DISEASE, UNSPECIFIED Status: Chronic Priority: Medium Current Visit: No Qualifiers: Chronic kidney disease stage: unspecified stage Qualified Code(s): N18.9 - Chronic kidney disease, unspecified (7) Peripheral vascular disease in diabetes mellitus SNOMED Code(s): 33508876, 897231024, 18951561585824 ICD Code: E11.51 - TYPE 2 DIABETES W DIABETIC PERIPHERAL ANGIOPATH W/O GANGRENE Status: Chronic Priority: Medium Current Visit: No (8) Mixed hyperlipidemia SNOMED Code(s): 767078681 ICD Code: E78.2 - MIXED HYPERLIPIDEMIA Status: Chronic Priority: Medium Current Visit: No (9) BPH (benign prostatic hyperplasia) SNOMED Code(s): 948939124 ICD Code: N40.0 - BENIGN PROSTATIC HYPERPLASIA WITHOUT LOWER URINRY TRACT SYMP Status: Chronic Priority: Low Current Visit: No Qualifiers: Lower urinary tract symptom presence: symptoms present Lower urinary tract symptom detail: unspecified Qualified Code(s): N40.1 - Benign prostatic hyperplasia with lower urinary tract symptoms - Patient Summary/Data Operative Procedure(s) Performed: None Consults: Consultations 05/02/18 17:41 Consult to Case Management [CONS] Routine OT Evaluation and Treatment [CONS] Routine PT Evaluation and Treatment [CONS] Routine Labs Pending at D/C: None Recommended Follow-up Testing/Procedures: Nephrology consult for acute renal failure Planned Operative Procedure(s) after DC: None Hospital Course: Overall patient has remained hemodynamically stable with blood pressures on the lower and of 100s over the 50s. The patient has had some issues with his congestive heart failure and elevated BNP levels. We have been working with essential cardiology to regulate the patient's diuretics and blood pressure. The patient recently had his Lasix stopped and was changed to torsemide 20 mg twice a day. We also decreased his lisinopril to 2.5 mg daily for the low blood pressures. The patient seems to be tolerating his Coreg okay. The patient has been having decreased urine output over the past couple of days. The patient has not shown any signs or symptoms of acute uremia. The patient had been progressing well with physical and occupational therapy. The plan was today to send the patient back home, but in light of his acute renal failure he will need to be transferred for tertiary care and needs a nephrology consult. The patient's weight has ranged anywhere from 139 kg to 144 kg. The patient does seem to take in a considerable amount of fluids even with fluid restrictions ordered. The patient has not had any neurological changes. The patient has not had any chest pain. The patient did have some issues with shortness of breath last week as it was found his BNP was elevated at 4100. At that time his Lasix was then changed to torsemide. - Patient Instructions Diet: Fluid Restriction, Diabetic Diet Activity: Bedrest Driving: Do Not Drive Showering/Bathing: May Shower Wound/Incision Care: Keep Operative Site/Wound Site Clean and Dry, Change Dressing Daily Notify Provider of: Fever, Increased Pain, Swelling and Redness, Drainage, Nausea and/or Vomiting - Discharge Plan *PRESCRIPTION DRUG MONITORING PROGRAM REVIEWED*: No *COPY OF PRESCRIPTION DRUG MONITORING REPORT IN PATIENT NELL: No Home Medications: Home Meds Aspirin [Ecotrin] 81 mg PO DAILY 05/02/18 [History] Carvedilol [Coreg] 6.25 mg PO BIDMEALS 05/02/18 [History] Insulin Glarg,Human.Rec.Analog [Lantus] 40 unit SUBCUT DAILY 05/02/18 [History] Tamsulosin [Flomax] 0.4 mg PO DAILY 05/02/18 [History] Mineral Oil/Petrolatum,White [Minerin] 0 gm TOP Q8H jar 05/15/18 [Rx] Nystatin [Nystatin Crm] 0 gm TOP BID tube 05/15/18 [Rx] Torsemide [Demadex] 20 mg PO BIDDIURETIC tablet 05/15/18 [Rx] atorvaSTATin [Lipitor] 10 mg PO BEDTIME tablet 05/15/18 [Rx] Forms: Interfacility Transfer EMTALA - Discharge Summary/Plan Comment DC Time >30 min.: Yes Discharge Summary/Plan Comment: Patient will be transferred to [facility] in [place] for acute renal failure. I spoke with Dr. Stearns who accepted this patient in transfer. Full report given. The patient will be transferred to a [facility] in [place] via ALS ground. I did discuss this transfer with the patient who agreed to be sent to [place]. - General Info Date of Service: 05/15/18 Admission Dx/Problem (Free Text: Admission Diagnosis/Problem Admission Diagnosis/Problem Sepsis Weakness Deconditioning Mild Systolic Dysfunction Uncontrolled Diabetes Mellitus Right lower extremity ulcer CKD Obesity RLS Subjective Update: Patient states that overall he feels okay. The patient does state he is having some trouble with urine output. The patient is not having any pain. The patient denies any chest pain or shortness of breath. The patient states he is tolerating his diet okay. The patient states he has not had any fevers or chills. Functional Status: Reports: Pain Controlled, Tolerating Diet. Denies: Urinating Numeric/FACES Score: 0 - Review of Systems General: Reports: Weakness. Denies: Fever, Fatigue, Chills Pulmonary: Denies: Shortness of Breath, Cough Cardiovascular: Denies: Chest Pain, Palpitations Gastrointestinal: Denies: Abdominal Pain, Nausea, Vomiting Genitourinary: Reports: Retention Skin: Reports: Other (wound to right foot) Neurological: Reports: No Symptoms - Patient Data Vitals - Most Recent: Last Vital Signs Temp 36.4 C 05/15/18 05:42 Pulse 71 05/15/18 08:48 Resp 20 05/15/18 05:42 BP 103/53 L 05/15/18 08:48 Pulse Ox 94 L 05/15/18 05:42 Weight - Most Recent: 135.533 kg I&O - Last 24 hours: Intake & Output 05/14/18 05/15/18 05/15/18 22:59 06:59 14:59 Intake Total 360 Balance 360 Lab Results - Last 24 hrs: Laboratory Results - last 24 hr 05/14/18 05/14/18 05/14/18 Range/Units 11:27 17:10 22:17 Sodium (136-145) mmol/L Potassium (3.5-5.1) mmol/L Chloride (98-107) mmol/L Carbon Dioxide (21-32) mmol/L Anion Gap (10-20) mmol/L BUN (7-18) mg/dL Creatinine (0.70-1.30) mg/dL Est Cr Clr Drug Dosing mL/min Estimated GFR (MDRD) Glucose (74-106) mg/dL POC Glucose 116 H 155 H 92 (74-106) mg/dL Calcium (8.5-10.1) mg/dL NT-Pro-B Natriuret Pep (<=450) pg/mL 05/15/18 05/15/18 Range/Units 07:07 07:10 Sodium 138 (136-145) mmol/L Potassium 5.8 H D (3.5-5.1) mmol/L Chloride 106 (98-107) mmol/L Carbon Dioxide 23 (21-32) mmol/L Anion Gap 14.8 (10-20) mmol/L BUN 66 H D (7-18) mg/dL Creatinine 3.5 H* D (0.70-1.30) mg/dL Est Cr Clr Drug Dosing 18.78 mL/min Estimated GFR (MDRD) 17 Glucose 68 L (74-106) mg/dL POC Glucose 67 L (74-106) mg/dL Calcium 8.2 L (8.5-10.1) mg/dL NT-Pro-B Natriuret Pep 3034 H (<=450) pg/mL Med Orders - Current: Current Medications Acetaminophen (Tylenol) 650 mg PO Q4H PRN PRN Reason: Pain (Mild 1-3)/fever Last Admin: 05/14/18 08:02 Dose: 650 mg Al Hydroxide/Mg Hydroxide (Mag-Al Plus) 30 ml PO Q4H PRN PRN Reason: Nausea Last Admin: 05/07/18 11:03 Dose: 30 ml Aspirin (Halfprin) 81 mg PO DAILY BETI Last Admin: 05/15/18 08:48 Dose: 81 mg Atorvastatin Calcium (Lipitor) 10 mg PO BEDTIME BETI Last Admin: 07/15/18 22:21 Dose: 10 mg Carvedilol (Coreg) 6.25 mg PO BIDMEALS [facility] Last Admin: 05/15/18 08:48 Dose: 6.25 mg Docusate Sodium (Colace) 100 mg PO BID PRN PRN Reason: Constipation Insulin Glargine (Lantus Solostar) 0 units SUBCUT DAILY [facility] Last Admin: 05/15/18 08:52 Dose: 40 units Insulin Human Regular (Humulin R) 0 unit SUBCUT TIDMEALS [facility]; Protocol Last Admin: 05/15/18 08:48 Dose: Not Given Lisinopril (Prinivil) 2.5 mg PO DAILY [facility] Last Admin: 05/15/18 08:48 Dose: 2.5 mg Mineral Oil/White Petrolatum (Minerin Creme) 0 gm TOP Q8H [facility] Last Admin: 05/15/18 08:49 Dose: 1 applic Nystatin (Nystatin Crm) 0 gm TOP BID [facility] Last Admin: 05/15/18 08:49 Dose: 1 applic Ondansetron HCl (Zofran Odt) 4 mg PO Q6H PRN PRN Reason: nausea, able to take PO Last Admin: 05/14/18 17:15 Dose: 4 mg Polyethylene Glycol (Miralax) 17 gm PO DAILY PRN PRN Reason: Constipation Potassium Chloride (Klor-Con M20) 40 meq PO BID [facility] Last Admin: 05/15/18 08:57 Dose: Not Given Tamsulosin HCl (Flomax) 0.4 mg PO DAILY [facility] Last Admin: 05/15/18 08:48 Dose: 0.4 mg Torsemide (Demadex) 20 mg PO BIDDIURETIC [facility] Last Admin: 05/15/18 08:48 Dose: 20 mg Discontinued Medications Aspirin (Halfprin) 81 mg PO WITHBREAKFAST [facility] Carvedilol (Coreg) 6.25 mg PO BIDMEALS [facility] Carvedilol (Coreg) 6.25 mg PO BIDMEALS [facility] Last Admin: 05/03/18 10:21 Dose: Not Given Carvedilol (Coreg) 12.5 mg PO BIDM [facility] Last Admin: 05/05/18 08:57 Dose: 12.5 mg Cephalexin (Keflex) 500 mg PO BID [facility] Stop: 05/06/18 08:01 Last Admin: 05/05/18 08:58 Dose: 500 mg Cephalexin (Keflex) 500 mg PO QID [facility] Stop: 05/06/18 20:01 Last Admin: 05/06/18 19:39 Dose: 500 mg Fluconazole (Diflucan) 100 mg PO ONETIME ONE Stop: 05/08/18 20:33 Last Admin: 05/08/18 21:02 Dose: 100 mg Furosemide (Lasix) 20 mg PO BIDDIURETIC [facility] Last Admin: 05/02/18 18:42 Dose: 20 mg Furosemide (Lasix) 20 mg PO BIDDIURETIC [facility] Last Admin: 05/11/18 07:32 Dose: 20 mg Furosemide (Lasix) 40 mg PO ONETIME ONE Stop: 05/05/18 13:54 Last Admin: 05/05/18 14:53 Dose: 40 mg Insulin Human Regular (Humulin R) 0 unit SUBCUT TIDAC [facility]; Protocol Last Admin: 05/10/18 08:01 Dose: 3 units Lisinopril (Prinivil) 5 mg PO DAILY [facility] Lisinopril (Prinivil) 5 mg PO DAILY [facility] Last Admin: 05/03/18 10:22 Dose: Not Given Lisinopril (Prinivil) 10 mg PO DAILY [facility] Last Admin: 05/11/18 07:32 Dose: 10 mg Miconazole (Desenex 2%) 0 gm TOP BID [facility] Last Admin: 05/08/18 20:26 Dose: 1 applic Non-Formulary Medication (Cephalexin [Cephalexin]) 500 mg PO BID [facility] Nystatin (Nystatin Crm) 1 gm TOP BID [facility] Potassium Chloride (Potassium Chloride Solution) 40 meq PO BID [facility] Last Admin: 05/03/18 10:22 Dose: Not Given Tamsulosin HCl (Flomax) 0.4 mg PO DAILY [facility] Torsemide (Demadex) 40 mg PO BIDDIURETIC [facility] Last Admin: 05/12/18 09:07 Dose: 40 mg - Exam Quality Assessment: Reports: Skin Breakdown General: Reports: Alert, Cooperative, No Acute Distress Neck: Reports: Supple Lungs: Reports: Normal Respiratory Effort, Decreased Breath Sounds, Crackles ( bilateral bases) GI/Abdominal Exam: Soft, Non-Tender, Abnormal Bowel Sounds (Hypoactive) Skin: Reports: Warm, Dry Wound/Incisions: Reports: Healing Well, Dressing Dry and Intact Neurological: Reports: No New Focal Deficit *Q Meaningful Use (DIS) - VTE *Q VTE Mechanical Contraindications *Q: At Risk for Falls
[2018-05-15] MEDS ORDERED: Sodium Polystyrene Sulfonate 15 GM/60 ML Susp 60 ML Bot PO ONE (10:43)
== END 2018-05-15 12:00 | disposition short-term general hospital (02) | DRG 872 ==
LOC: VM.MS 05-02 14:52
PROVIDERS: ADMIT Nurse Practitioner Family; ATTEND Nurse Practitioner Family
DX: A41.9 Sepsis, unspecified organism (principal); I50.22 Chronic systolic (congestive) heart failure; I13.0 Hypertensive heart and chronic kidney disease with heart failure and stage 1 through stage 4 chronic kidney disease, or unspecified chronic kidney disease; I50.32 Chronic diastolic (congestive) heart failure; N17.9 Acute kidney failure, unspecified; E11.65 Type 2 diabetes mellitus with hyperglycemia; N40.0 Benign prostatic hyperplasia without lower urinary tract symptoms; E78.2 Mixed hyperlipidemia; E11.621 Type 2 diabetes mellitus with foot ulcer; E11.51 Type 2 diabetes mellitus with diabetic peripheral angiopathy without gangrene; E11.22 Type 2 diabetes mellitus with diabetic chronic kidney disease; N18.9 Chronic kidney disease, unspecified; E78.00 Pure hypercholesterolemia, unspecified; H91.90 Unspecified hearing loss, unspecified ear; G25.81 Restless legs syndrome; E66.9 Obesity, unspecified; Z68.37 Body mass index [BMI] 37.0-37.9, adult; K21.9 Gastro-esophageal reflux disease without esophagitis; Z79.82 Long term (current) use of aspirin; Z79.899 Other long term (current) drug therapy; Z89.512 Acquired absence of left leg below knee; Z87.891 Personal history of nicotine dependence; Z79.4 Long term (current) use of insulin
CPT/HCPCS: 36415; 71045; 80048; 82962; 83735; 83880; 97110-GP; 97161-GP; 97165-GO; 97530-GP; 97535-GO; A9270-GY; J1815; J1815-GY

== ENCOUNTER 2018-05-18 13:07 | Inpatient (IN) | payer MEDICARE, OTHER ==
[2018-05-18] MEDS ORDERED: Acetaminophen 325 MG Tab PO PRN (16:07)
--- NOTE | 2018-05-18 16:07 | PCM.HP ---
H&P History of Present Illness - General Date of Service: 05/18/18 Admit Problem/Dx: Admission Diagnosis/Problem Admission Diagnosis/Problem Acute kidney injury Weakness Deconditioning Source of Information: Patient, Old Records, RN, RN Notes Reviewed History Limitations: Reports: No Limitations - History of Present Illness Initial Comments - Free Text/Narative: Patient was transferred from [facility] today to our swing bed unit for weakness and deconditioning. The patient had been transferred from our facility on May 15, 2018 for a diagnosis of acute kidney injury. The patient had an elevated BUN/creatinine of 66 and 3.5 respectively. It was felt at that time the patient needed a nephrology consultation which is not offered at this facility. During the patient's stay he had a Hardy catheter placed by a urologist for urinary retention and the patient was also started on IV fluids. The patient never did receive a nephrology consultation. The patient's BUN/ creatinine upon discharge today from the [facility] had decreased to 1.7. The patient offers no specific complaints upon arrival. The patient states overall he feels well. The patient denies any focal neurological deficits. The patient denies any chest pain or shortness of breath. The patient has a Hardy catheter in place. The patient denies any nausea vomiting or diarrhea. The patient states that he has been eating and drinking okay. Otherwise no other concerns. - Related Data Allergies/Adverse Reactions: Allergies Allergy/AdvReac Type Severity Reaction Status Date / Time No Known Allergies Allergy Verified 05/02/18 16:36 Home Medications: Home Meds Aspirin [Ecotrin] 81 mg PO DAILY 05/02/18 [History] Carvedilol [Coreg] 6.25 mg PO BIDMEALS 05/02/18 [History] Insulin Glarg,Human.Rec.Analog [Lantus] 30 unit SUBCUT DAILY 05/02/18 [History] Tamsulosin [Flomax] 0.4 mg PO DAILY 05/02/18 [History] Mineral Oil/Petrolatum,White [Minerin] 0 gm TOP Q8H jar 05/15/18 [Rx] Nystatin [Nystatin Crm] 0 gm TOP BID tube 05/15/18 [Rx] Torsemide [Demadex] 20 mg PO BIDDIURETIC tablet 05/15/18 [Rx] atorvaSTATin [Lipitor] 10 mg PO BEDTIME tablet 05/15/18 [Rx] Acetaminophen [Tylenol] 650 mg PO Q4HR PRN 05/18/18 [History] Lisinopril 2.5 mg PO DAILY 05/18/18 [History] Potassium Chloride [Klor-Con 10] 40 meq PO BIDMEALS 05/18/18 [History] Past Medical History HEENT History: Reports: Hard of Hearing Other HEENT History: nonproliferative retinopathy Cardiovascular History: Reports: Heart Failure, High Cholesterol, Hypertension, PVD Gastrointestinal History: Reports: GERD Genitourinary History: Reports: Other (See Below) Other Genitourinary History: CKD Musculoskeletal History: Reports: Amputation, Other (See Below) Other Musculoskeletal History: BKA left leg Neurological History: Reports: Neuropathy, Peripheral, Other (See Below) Other Neuro History: restless legs Endocrine/Metabolic History: Reports: Diabetes Mellitus, Type 3c Dermatologic History: Reports: Other (See Below) Other Dermatologic History: Stage II pressure ulcer to R heel. Venous stasis ulcer to right dorsal foot Social & Family History - Family History Family Medical History: Noncontributory - Tobacco Use Smoking Status *Q: Never Smoker Second Hand Smoke Exposure: No - Caffeine Use Caffeine Use: Reports: Coffee - Recreational Drug Use Recreational Drug Use: No - Living Situation & Occupation Living situation: Reports: Assisted Living Occupation: Retired H&P Review of Systems - Review of Systems: Review Of Systems: See Below General: Reports: Weakness, Fatigue. Denies: Fever, Chills Pulmonary: Denies: Shortness of Breath, Cough Cardiovascular: Denies: Chest Pain, Palpitations Gastrointestinal: Denies: Abdominal Pain, Nausea, Vomiting Genitourinary: Reports: Retention Skin: Reports: No Symptoms Psychiatric: Reports: No Symptoms Exam - Exam Exam: See Below - Vital Signs Vital Signs: Last Vital Signs Temp 36.9 C 05/18/18 13:26 Pulse 60 05/18/18 13:26 Resp 22 H 05/18/18 13:26 BP 118/62 05/18/18 13:26 Pulse Ox 95 05/18/18 13:26 Weight: 152.407 kg - Exam Quality Assessment: Urinary Catheter, Skin Breakdown General: Alert, Oriented, Cooperative Lungs: Clear to Auscultation, Normal Respiratory Effort, Decreased Breath Sounds Cardiovascular: Regular Rate, Regular Rhythm GI/Abdominal Exam: Soft, Non-Tender, Abnormal Bowel Sounds (Hypoactive) (Male) Exam: Other (hardy catheter in place, draining yellow urine) Peripheral Pulses: 2+: Radial (L), Radial (R) Skin: Warm, Dry, Wound (Right lower extremity and foot; open areas healing well ; skin scaley; no drainage) Neuro Extensive - Mental Status: Alert, Oriented x3 *Q Meaningful Use (ADM) - VTE *Q VTE Mechanical Contraindications *Q: At Risk for Falls - Problem List (1) Chronic kidney disease SNOMED Code(s): 476793211 ICD Code: N18.9 - CHRONIC KIDNEY DISEASE, UNSPECIFIED Status: Chronic Priority: Medium Current Visit: No Qualifiers: Chronic kidney disease stage: unspecified stage Qualified Code(s): N18.9 - Chronic kidney disease, unspecified (2) Physical deconditioning SNOMED Code(s): 69798458765117 ICD Code: R53.81 - OTHER MALAISE Status: Acute Priority: Medium Current Visit: Yes Onset Date: ~04/26/18 (3) Weakness SNOMED Code(s): 54271828 ICD Code: R53.1 - WEAKNESS Status: Acute Priority: Medium Current Visit : Yes Onset Date: ~04/26/18 (4) Congestive heart failure SNOMED Code(s): 98380363 ICD Code: I50.9 - HEART FAILURE, UNSPECIFIED Status: Chronic Priority: Medium Current Visit: No Qualifiers: Heart failure type: systolic Heart failure chronicity: chronic Qualified Code(s): I50.22 - Chronic systolic (congestive) heart failure (5) Essential hypertension SNOMED Code(s): 46856299 ICD Code: I10 - ESSENTIAL (PRIMARY) HYPERTENSION Status: Chronic Priority : Medium Current Visit: No (6) Mixed hyperlipidemia SNOMED Code(s): 287489717 ICD Code: E78.2 - MIXED HYPERLIPIDEMIA Status: Chronic Priority: Medium Current Visit: No (7) Peripheral vascular disease in diabetes mellitus SNOMED Code(s): 55934368, 322156882, 85762987812069 ICD Code: E11.51 - TYPE 2 DIABETES W DIABETIC PERIPHERAL ANGIOPATH W/O GANGRENE Status: Chronic Priority: Medium Current Visit: No (8) Urinary retention due to benign prostatic hyperplasia SNOMED Code(s): 102141505 ICD Code: N40.1 - BENIGN PROSTATIC HYPERPLASIA WITH LOWER URINARY TRACT SYMP ; R33.8 - OTHER RETENTION OF URINE Status: Acute Priority: Medium Current Visit: Yes Onset Date: ~05/15/18 Problem List Initiated/Reviewed/Updated: Yes Orders Last 24hrs: Active Orders 24 hr Category Date Time Status Patient Status [ADT] Routine ADT 05/18/18 16:00 Ordered Height and Weight [RC] PER UNIT ROUTINE Care 05/18/18 16:02 Ordered Intake and Output [RC] QSHIFT Care 05/18/18 16:02 Ordered May Shower [RC] ASDIRECTED Care 05/18/18 16:00 Ordered Oxygen Therapy [RC] PRN Care 05/18/18 16:00 Ordered Up With Assistance [RC] ASDIRECTED Care 05/18/18 16:00 Ordered Urinary Catheter Assessment [RC] ASDIRECTED Care 05/18/18 16:00 Ordered VTE/DVT Education [RC] PER UNIT ROUTINE Care 05/18/18 16:00 Ordered Vital Signs [RC] PER UNIT ROUTINE Care 05/18/18 16:00 Ordered Consult to Case Management [CONS] Routine Cons 05/18/18 16:00 Ordered OT Evaluation and Treatment [CONS] Routine Cons 05/18/18 16:00 Ordered PT Evaluation and Treatment [CONS] Routine Cons 05/18/18 16:00 Ordered Mechanical Soft Diet [DIET] Diet 05/18/18 Breakfast Ordered CULTURE MRSA SURVEY [RM] Routine Lab 05/18/18 13:33 Ordered Code Status [Resuscitation Status] Routine Resus Stat 05/18/18 13:23 Ordered Assessment/Plan Comment:: 83-year-old male patient with a past medical history of diabetes, congestive heart failure, essential hypertension, mixed hyperlipidemia is admitted to the swing bed unit at [facility] for a diagnosis of urinary retention, weakness , physical deconditioning. We will continue the patient on his current medications without any changes. The patient will have a nephrology consult once he is discharged from swing bed. Hardy catheter will stay in place until the patient is seen by urologist at his next appointment. The patient is a code level II. I do not anticipate the patient to be admitted for more than a week. I will consult physical and occupational therapy respectively to see this patient and continue his therapy. It is unclear at this point the patient will be discharged back to his assisted living facility versus a care home. It will certainly depend upon how well he does with physical therapy. My main concern was sending the patient back to assisted living is the patient remembering to take his medications as his heart failure and kidney disease is very tenuous. The patient will need a follow-up appointment with his primary care provider at the [facility] once he is discharged. NOTE: This patient is seen and examined by me as an [facility] provider
[2018-05-18] MEDS: Mineral Oil/Petrolatum,White Crm 454 GM Jar TOP SCH (16:15)
[2018-05-18] MEDS: Carvedilol 6.25 MG Tab PO SCH (17:59)
[2018-05-18] MEDS: Potassium Chloride 20 MEQ Tab.ER PO SCH (17:59)
[2018-05-18] MEDS ORDERED: Potassium Chloride 20 MEQ Tab.ER PO SCH (18:00)
[2018-05-18] MEDS: Ondansetron 4 MG Tab.DIS PO PRN (18:14)
[2018-05-18] MEDS: Torsemide 20 MG Tab PO SCH (19:23)
[2018-05-18] MEDS: atorvaSTATin 10 MG Tab PO SCH (19:23)
[2018-05-18] MEDS: Nystatin Crm 30 GM Tube TOP SCH (19:24)
[2018-05-19] MEDS: Mineral Oil/Petrolatum,White Crm 454 GM Jar TOP SCH ×3 (00:04→17:27)
[2018-05-19] MEDS: Nystatin Crm 30 GM Tube TOP SCH ×2 (06:30→22:04)
[2018-05-19] MEDS: Torsemide 20 MG Tab PO SCH ×2 (08:30→17:38)
[2018-05-19] MEDS: Lisinopril 2.5 MG Tab PO SCH (08:30)
[2018-05-19] MEDS: Potassium Chloride 20 MEQ Tab.ER PO SCH ×2 (08:30→17:38)
[2018-05-19] MEDS: Tamsulosin 0.4 MG Cap.ER PO SCH (08:30)
[2018-05-19] MEDS: Aspirin 81 MG Tab.EC PO SCH (08:30)
[2018-05-19] MEDS: Insulin Glargine,Human Rec. Analog 100 Units/ML 3 ML Pen SUBCUT SCH (08:31)
[2018-05-19] MEDS: Carvedilol 6.25 MG Tab PO SCH ×2 (08:31→17:37)
[2018-05-19] MEDS: Ondansetron 4 MG Tab.DIS PO PRN (13:04)
[2018-05-19] MEDS: atorvaSTATin 10 MG Tab PO SCH (22:04)
[2018-05-20] MEDS: Lisinopril 2.5 MG Tab PO SCH (09:01)
[2018-05-20] MEDS: Aspirin 81 MG Tab.EC PO SCH (09:02)
[2018-05-20] MEDS: Tamsulosin 0.4 MG Cap.ER PO SCH (09:02)
[2018-05-20] MEDS: Potassium Chloride 20 MEQ Tab.ER PO SCH ×2 (09:03→17:09)
[2018-05-20] MEDS: Carvedilol 6.25 MG Tab PO SCH ×2 (09:03→17:08)
[2018-05-20] MEDS: Torsemide 20 MG Tab PO SCH ×2 (09:03→17:09)
[2018-05-20] MEDS: Nystatin Crm 30 GM Tube TOP SCH ×2 (09:04→20:07)
[2018-05-20] MEDS: Insulin Glargine,Human Rec. Analog 100 Units/ML 3 ML Pen SUBCUT SCH (09:05)
[2018-05-20] MEDS: Mineral Oil/Petrolatum,White Crm 454 GM Jar TOP SCH ×3 (09:10→17:10)
[2018-05-20] MEDS: atorvaSTATin 10 MG Tab PO SCH (20:07)
[2018-05-21] MEDS: Nystatin Crm 30 GM Tube TOP SCH ×2 (08:57→21:15)
[2018-05-21] MEDS: Insulin Glargine,Human Rec. Analog 100 Units/ML 3 ML Pen SUBCUT SCH (08:57)
[2018-05-21] MEDS: Potassium Chloride 20 MEQ Tab.ER PO SCH ×3 (08:58→17:39)
[2018-05-21] MEDS: Torsemide 20 MG Tab PO SCH ×3 (08:58→16:48)
[2018-05-21] MEDS: Aspirin 81 MG Tab.EC PO SCH ×2 (08:58→10:08)
[2018-05-21] MEDS: Tamsulosin 0.4 MG Cap.ER PO SCH ×2 (08:58→10:08)
[2018-05-21] MEDS: Lisinopril 2.5 MG Tab PO SCH ×2 (08:58→10:08)
[2018-05-21] MEDS: Carvedilol 6.25 MG Tab PO SCH ×4 (08:59→17:39)
[2018-05-21] MEDS: Mineral Oil/Petrolatum,White Crm 454 GM Jar TOP SCH ×4 (09:00→23:30)
[2018-05-21] MEDS: atorvaSTATin 10 MG Tab PO SCH (21:15)
[2018-05-22 07:43] LABS: ANION GAP 14.3 mmol/L (10-20)
[2018-05-22] MEDS: Insulin Glargine,Human Rec. Analog 100 Units/ML 3 ML Pen SUBCUT SCH (08:34)
[2018-05-22] MEDS: Nystatin Crm 30 GM Tube TOP SCH ×2 (08:34→20:53)
[2018-05-22] MEDS: Mineral Oil/Petrolatum,White Crm 454 GM Jar TOP SCH ×2 (08:35→17:29)
[2018-05-22] MEDS: Tamsulosin 0.4 MG Cap.ER PO SCH (08:40)
[2018-05-22] MEDS: Torsemide 20 MG Tab PO SCH ×2 (08:40→17:28)
[2018-05-22] MEDS: Aspirin 81 MG Tab.EC PO SCH (08:40)
[2018-05-22] MEDS: Carvedilol 6.25 MG Tab PO SCH ×2 (08:40→17:28)
[2018-05-22] MEDS: Potassium Chloride 20 MEQ Tab.ER PO SCH ×2 (08:41→17:29)
[2018-05-22] MEDS: Lisinopril 2.5 MG Tab PO SCH (08:41)
[2018-05-22] MEDS: atorvaSTATin 10 MG Tab PO SCH (20:52)
[2018-05-23] MEDS: Mineral Oil/Petrolatum,White Crm 454 GM Jar TOP SCH ×4 (01:54→20:21)
[2018-05-23] MEDS: Torsemide 20 MG Tab PO SCH ×2 (08:55→17:14)
[2018-05-23] MEDS: Tamsulosin 0.4 MG Cap.ER PO SCH (08:55)
[2018-05-23] MEDS: Aspirin 81 MG Tab.EC PO SCH (08:55)
[2018-05-23] MEDS: Carvedilol 6.25 MG Tab PO SCH ×2 (08:56→17:14)
[2018-05-23] MEDS: Lisinopril 2.5 MG Tab PO SCH (08:56)
[2018-05-23] MEDS: Insulin Glargine,Human Rec. Analog 100 Units/ML 3 ML Pen SUBCUT SCH (08:57)
[2018-05-23] MEDS: Potassium Chloride 20 MEQ Tab.ER PO SCH (08:57)
[2018-05-23] MEDS: Nystatin Crm 30 GM Tube TOP SCH ×2 (08:57→20:17)
[2018-05-23] MEDS: Potassium Chloride 20 MEQ Packet PO SCH ×3 (11:08→17:15)
[2018-05-23] MEDS: atorvaSTATin 10 MG Tab PO SCH (20:12)
[2018-05-24] MEDS: Mineral Oil/Petrolatum,White Crm 454 GM Jar TOP SCH ×3 (03:10→17:08)
[2018-05-24] MEDS: Carvedilol 6.25 MG Tab PO SCH ×2 (07:51→17:08)
[2018-05-24] MEDS: Torsemide 20 MG Tab PO SCH ×2 (07:51→17:08)
[2018-05-24] MEDS: Lisinopril 2.5 MG Tab PO SCH (07:51)
[2018-05-24] MEDS: Tamsulosin 0.4 MG Cap.ER PO SCH (07:51)
[2018-05-24] MEDS: Insulin Glargine,Human Rec. Analog 100 Units/ML 3 ML Pen SUBCUT SCH (07:52)
[2018-05-24] MEDS: Potassium Chloride 20 MEQ Packet PO SCH ×2 (07:52→17:08)
[2018-05-24] MEDS: Aspirin 81 MG Tab.EC PO SCH (07:52)
[2018-05-24] MEDS: Nystatin Crm 30 GM Tube TOP SCH ×2 (07:53→20:02)
[2018-05-24] MEDS ORDERED: atorvaSTATin 10 MG Tab PO SCH (20:00)
[2018-05-24] MEDS: atorvaSTATin 10 MG Tab PO SCH (20:02)
[2018-05-25] MEDS: Mineral Oil/Petrolatum,White Crm 454 GM Jar TOP SCH ×2 (01:00→10:53)
[2018-05-25] MEDS: atorvaSTATin 10 MG Tab PO SCH (04:12)
[2018-05-25] MEDS: Ondansetron 4 MG Tab.DIS PO PRN (06:03)
[2018-05-25 07:59] LABS: ANION GAP 16.4 mmol/L (10-20)
--- NOTE | 2018-05-25 09:50 | PCM.DCSUM1 ---
Discharge Summary - Hospital Course HPI Initial Comments: Patient was transferred from [facility] today to our swing bed unit for weakness and deconditioning. The patient had been transferred from our facility on May 15, 2018 for a diagnosis of acute kidney injury. The patient had an elevated BUN/creatinine of 66 and 3.5 respectively. It was felt at that time the patient needed a nephrology consultation which is not offered at this facility. During the patient's stay he had a De La Torre catheter placed by a urologist for urinary retention and the patient was also started on IV fluids. The patient never did receive a nephrology consultation. The patient's BUN/ creatinine upon discharge today from the [facility] had decreased to 1.7. The patient offers no specific complaints upon arrival. The patient states overall he feels well. The patient denies any focal neurological deficits. The patient denies any chest pain or shortness of breath. The patient has a De La Torre catheter in place. The patient denies any nausea vomiting or diarrhea. The patient states that he has been eating and drinking okay. Otherwise no other concerns. This morning, the patient started having projectile bilious vomiting, paleness, and generally not feeling well. WBC's elevated at 20.5 and worsening kidney failure, 55/2.5 respectively. Patient states his abdomen "feels awful." She does not have an appetite. He has been refusing some of his medications over the past few days. The patient's fluid intake has been barely adequate. It is unclear when the patient has had his last bowel movement. The patient states that he generally feels weaker and more fatigued. Diagnosis: Stroke: No Modified Jose Cruz Scale: No Symptoms at All Modified Stanislaus Scale Score: 0 - Discharge Data Discharge Date: 05/25/18 Discharge Disposition: Home, Self-Care 01 Condition: Fair - Discharge Diagnosis/Problem(s) (1) Chronic kidney disease SNOMED Code(s): 454187288 ICD Code: N18.9 - CHRONIC KIDNEY DISEASE, UNSPECIFIED Status: Chronic Priority: Medium Current Visit: No Qualifiers: Chronic kidney disease stage: unspecified stage Qualified Code(s): N18.9 - Chronic kidney disease, unspecified (2) Physical deconditioning SNOMED Code(s): 48076607415690 ICD Code: R53.81 - OTHER MALAISE Status: Acute Priority: Medium Current Visit: Yes Onset Date: ~04/26/18 (3) Weakness SNOMED Code(s): 95506366 ICD Code: R53.1 - WEAKNESS Status: Acute Priority: Medium Current Visit : Yes Onset Date: ~04/26/18 (4) Congestive heart failure SNOMED Code(s): 88898820 ICD Code: I50.9 - HEART FAILURE, UNSPECIFIED Status: Chronic Priority: Medium Current Visit: No Qualifiers: Heart failure type: systolic Heart failure chronicity: chronic Qualified Code(s): I50.22 - Chronic systolic (congestive) heart failure (5) Essential hypertension SNOMED Code(s): 47166505 ICD Code: I10 - ESSENTIAL (PRIMARY) HYPERTENSION Status: Chronic Priority : Medium Current Visit: No (6) Mixed hyperlipidemia SNOMED Code(s): 415665629 ICD Code: E78.2 - MIXED HYPERLIPIDEMIA Status: Chronic Priority: Medium Current Visit: No (7) Peripheral vascular disease in diabetes mellitus SNOMED Code(s): 08616618, 258789126, 52694009637441 ICD Code: E11.51 - TYPE 2 DIABETES W DIABETIC PERIPHERAL ANGIOPATH W/O GANGRENE Status: Chronic Priority: Medium Current Visit: No (8) Urinary retention due to benign prostatic hyperplasia SNOMED Code(s): 095331974 ICD Code: N40.1 - BENIGN PROSTATIC HYPERPLASIA WITH LOWER URINARY TRACT SYMP ; R33.8 - OTHER RETENTION OF URINE Status: Acute Priority: Medium Current Visit: Yes Onset Date: ~05/15/18 - Patient Summary/Data Consults: Consultations 05/18/18 16:00 Consult to Case Management [CONS] Routine OT Evaluation and Treatment [CONS] Routine PT Evaluation and Treatment [CONS] Routine Hospital Course: Patient was transferred back to her facility one week ago today. The patient seemed to be progressing well to where therapy was no longer be working with him after Tuesday of this week. I did plan to discharge the patient back to the assisted living center on Tuesday. However, the patient started having projectile bilious vomiting this morning, white blood cell count elevated at 20.5, and generally not feeling well. A 2 view abdominal x-ray showed a developing ileus. The patient is also having worsening of his BUN/creatinine which is 55/2.5 respectively. It is unclear when the patient had his last bowel movement. The patient has been barely taking in adequate by mouth fluids according to nursing staff. A bladder scan was performed this morning which only showed 31 cc of urine in the bladder. - Discharge Plan *PRESCRIPTION DRUG MONITORING PROGRAM REVIEWED*: Not Applicable *COPY OF PRESCRIPTION DRUG MONITORING REPORT IN PATIENT NELL: Not Applicable Home Medications: Home Meds Aspirin [Ecotrin] 81 mg PO DAILY 05/02/18 [History] Carvedilol [Coreg] 6.25 mg PO BIDMEALS 05/02/18 [History] Insulin Glarg,Human.Rec.Analog [Lantus] 30 unit SUBCUT DAILY 05/02/18 [History] Tamsulosin [Flomax] 0.4 mg PO DAILY 05/02/18 [History] Mineral Oil/Petrolatum,White [Minerin] 0 gm TOP Q8H jar 05/15/18 [Rx] Nystatin [Nystatin Crm] 0 gm TOP BID tube 05/15/18 [Rx] Torsemide [Demadex] 20 mg PO BIDDIURETIC tablet 05/15/18 [Rx] atorvaSTATin [Lipitor] 10 mg PO BEDTIME tablet 05/15/18 [Rx] Acetaminophen [Tylenol] 650 mg PO Q4HR PRN 05/18/18 [History] Lisinopril 2.5 mg PO DAILY 05/18/18 [History] Potassium Chloride [Klor-Con 10] 40 meq PO BIDMEALS 05/18/18 [History] Forms: Interfacility Transfer EMTALA - Discharge Summary/Plan Comment DC Time >30 min.: Yes Discharge Summary/Plan Comment: Case was discussed with Dr. Stearns, hospitalist at the [facility] in [place]. The patient was accepted in transfer. Full report was given by myself. The patient will be sent to the [facility] via ALS ground. The patient agrees with the updated plan of care. We would be more than happy to take the patient back should he require swing bed services again. I asked Dr. Stearns to get a nephrology consult for the patient's worsening acute on chronic kidney disease. Dr. Stearns who agreed with the consultation given the patient's current condition. - General Info Date of Service: 05/25/18 Admission Dx/Problem (Free Text: Admission Diagnosis/Problem Admission Diagnosis/Problem Acute kidney injury Weakness Deconditioning Subjective Update: Patient states he is not feeling well this AM. He feels nauseated and have vomited several times. He does not have a appetite. He feels somewhat confused. No chest pain or SOB. He states he has generalized abdominal pain. - Review of Systems General: Reports: Weakness, Fatigue. Denies: Fever Pulmonary: Denies: Shortness of Breath, Cough Cardiovascular: Denies: Chest Pain, Palpitations Gastrointestinal: Reports: Abdominal Pain, Decreased Appetite, Vomiting Skin: Reports: No Symptoms Neurological: Reports: No Symptoms - Patient Data Vitals - Most Recent: Last Vital Signs Temp 36.8 C 05/25/18 06:00 Pulse 96 05/25/18 06:00 Resp 19 05/25/18 06:00 BP 98/57 L 05/25/18 06:00 Pulse Ox 98 05/25/18 06:00 Weight - Most Recent: 134.263 kg I&O - Last 24 hours: Intake & Output 05/24/18 05/25/18 05/25/18 22:59 06:59 14:59 Intake Total 600 620 Output Total 200 200 Balance 400 620 -200 Lab Results - Last 24 hrs: Laboratory Results - last 24 hr 05/24/18 05/24/18 05/24/18 Range/Units 11:13 17:07 20:04 WBC (4.0-10.0) x10^3/uL RBC (4.5-6.0) x10^6/uL Hgb (14.0-18.0) g/dL Hct (40.0-52.0) % MCV (78.0-93.0) fL MCH (26.0-32.0) pg MCHC (32.0-36.0) g/dL RDW Coeff of Karen (10.0-15.0) % Plt Count (130-400) x10^3/uL Add Manual Diff Neutrophils % (Manual) (50-80) % Band Neutrophils % (0-6) % Lymphocytes % (Manual) (25-50) % Monocytes % (Manual) (2-11) % Platelet Estimate Sodium (136-145) mmol/L Potassium (3.5-5.1) mmol/L Chloride (98-107) mmol/L Carbon Dioxide (21-32) mmol/L Anion Gap (10-20) mmol/L BUN (7-18) mg/dL Creatinine (0.70-1.30) mg/dL Est Cr Clr Drug Dosing mL/min Estimated GFR (MDRD) Glucose (74-106) mg/dL POC Glucose 137 H 167 H 180 H (74-106) mg/dL Calcium (8.5-10.1) mg/dL 05/25/18 05/25/18 05/25/18 Range/Units 06:02 07:35 07:35 WBC 20.5 H* (4.0-10.0) x10^3/uL RBC 4.56 (4.5-6.0) x10^6/uL Hgb 14.3 (14.0-18.0) g/dL Hct 41.0 (40.0-52.0) % MCV 89.9 (78.0-93.0) fL MCH 31.4 (26.0-32.0) pg MCHC 34.9 (32.0-36.0) g/dL RDW Coeff of Karen 13.4 (10.0-15.0) % Plt Count 223 (130-400) x10^3/uL Add Manual Diff Yes Neutrophils % (Manual) 80 (50-80) % Band Neutrophils % 3 (0-6) % Lymphocytes % (Manual) 13 L (25-50) % Monocytes % (Manual) 4 (2-11) % Platelet Estimate Adequate Sodium 137 (136-145) mmol/L Potassium 4.4 (3.5-5.1) mmol/L Chloride 102 (98-107) mmol/L Carbon Dioxide 23 (21-32) mmol/L Anion Gap 16.4 (10-20) mmol/L BUN 55 H (7-18) mg/dL Creatinine 2.5 H (0.70-1.30) mg/dL Est Cr Clr Drug Dosing 25.57 mL/min Estimated GFR (MDRD) 25 Glucose 185 H (74-106) mg/dL POC Glucose 174 H (74-106) mg/dL Calcium 8.8 (8.5-10.1) mg/dL Med Orders - Current: Current Medications Acetaminophen (Tylenol) 650 mg PO Q4HR PRN PRN Reason: Pain Aspirin (Halfprin) 81 mg PO DAILY BETI Last Admin: 05/24/18 07:52 Dose: 81 mg Atorvastatin Calcium (Lipitor) 10 mg PO BEDTIME BETI Last Admin: 05/24/18 20:30 Dose: Not Given Carvedilol (Coreg) 6.25 mg PO BIDMEALS [facility] Last Admin: 05/24/18 17:08 Dose: 6.25 mg Insulin Glargine (Lantus Solostar) 30 units SUBCUT DAILY [facility] Last Admin: 05/24/18 07:52 Dose: 30 units Lisinopril (Prinivil) 2.5 mg PO DAILY [facility] Last Admin: 05/24/18 07:51 Dose: 2.5 mg Mineral Oil/White Petrolatum (Minerin Creme) 0 gm TOP Q8H [facility] Last Admin: 05/25/18 01:00 Dose: 1 applic Nystatin (Nystatin Crm) 0 gm TOP BID [facility] Stop: 05/29/18 08:01 Last Admin: 05/24/18 20:02 Dose: 1 applic Ondansetron HCl (Zofran Odt) 4 mg PO Q6H PRN PRN Reason: Nausea/Vomiting Last Admin: 05/25/18 06:03 Dose: 4 mg Potassium Chloride (Klor-Con) 40 meq PO BIDMEALS [facility] Last Admin: 05/24/18 17:08 Dose: Not Given Tamsulosin HCl (Flomax) 0.4 mg PO DAILY [facility] Last Admin: 05/24/18 07:51 Dose: 0.4 mg Torsemide (Demadex) 20 mg PO BIDDIURETIC [facility] Last Admin: 05/24/18 17:08 Dose: 20 mg Discontinued Medications Atorvastatin Calcium (Lipitor) 10 mg PO BEDTIME [facility] Last Admin: 05/23/18 20:12 Dose: 10 mg Nystatin (Nystatin Crm) 0 gm TOP BID [facility] Last Admin: 05/22/18 08:34 Dose: 1 applic Potassium Chloride (Klor-Con M20) 40 meq PO BIDMEALS [facility] Last Admin: 05/23/18 08:57 Dose: Not Given - Exam Quality Assessment: Reports: Skin Breakdown (Taylor's cyst) General: Reports: Alert, Cooperative, Mild Distress Lungs: Reports: Clear to Auscultation, Normal Respiratory Effort, Decreased Breath Sounds Cardiovascular: Reports: Regular Rate, Regular Rhythm GI/Abdominal Exam: Distended, Rigid, Tender, Abnormal Bowel Sounds (Hyperactive all quads) Skin: Reports: Warm, Dry, Other (See nursing notes) Wound/Incisions: Reports: Healing Well Neurological: Reports: No New Focal Deficit *Q Meaningful Use (DIS) - VTE *Q VTE Mechanical Contraindications *Q: At Risk for Falls
[2018-05-25] MEDS ORDERED: Ondansetron 4 MG/2 ML SDV IVPUSH ONE (10:40)
[2018-05-25] MEDS: Carvedilol 6.25 MG Tab PO SCH (10:43)
[2018-05-25] MEDS: Torsemide 20 MG Tab PO SCH (10:43)
[2018-05-25] MEDS: Tamsulosin 0.4 MG Cap.ER PO SCH (10:43)
[2018-05-25] MEDS: Aspirin 81 MG Tab.EC PO SCH (10:44)
[2018-05-25] MEDS: Potassium Chloride 20 MEQ Packet PO SCH (10:44)
[2018-05-25] MEDS: Lisinopril 2.5 MG Tab PO SCH (10:44)
[2018-05-25] MEDS: Insulin Glargine,Human Rec. Analog 100 Units/ML 3 ML Pen SUBCUT SCH (10:52)
[2018-05-25] MEDS: Nystatin Crm 30 GM Tube TOP SCH (10:53)
== END 2018-05-25 11:35 | disposition short-term general hospital (02) | DRG 948 ==
LOC: VM.MS 13:07
PROVIDERS: ADMIT Nurse Practitioner Family; ATTEND Nurse Practitioner Family
DX: R53.1 Weakness (principal); I13.0 Hypertensive heart and chronic kidney disease with heart failure and stage 1 through stage 4 chronic kidney disease, or unspecified chronic kidney disease; I50.22 Chronic systolic (congestive) heart failure; N17.9 Acute kidney failure, unspecified; K56.7 Ileus, unspecified; N18.9 Chronic kidney disease, unspecified; E78.2 Mixed hyperlipidemia; E11.51 Type 2 diabetes mellitus with diabetic peripheral angiopathy without gangrene; E11.22 Type 2 diabetes mellitus with diabetic chronic kidney disease; N40.1 Benign prostatic hyperplasia with lower urinary tract symptoms; R33.8 Other retention of urine; K21.9 Gastro-esophageal reflux disease without esophagitis; E11.3299 Type 2 diabetes mellitus with mild nonproliferative diabetic retinopathy without macular edema, unspecified eye; L89.612 Pressure ulcer of right heel, stage 2; I87.8 Other specified disorders of veins; Z79.899 Other long term (current) drug therapy; Z79.82 Long term (current) use of aspirin; Z79.4 Long term (current) use of insulin
CPT/HCPCS: 36415; 51798; 74019; 80048; 82962; 83735; 85025; 97110-GP; 97164-GP; 97165-GO; 97530-GP; 97535-GO; A9270-GY; J1815-GY; J2405

== ENCOUNTER 2020-05-06 12:37 | Inpatient (IN) | payer MEDICARE, OTHER ==
[2020-05-06] MEDS ORDERED: Sodium Chloride 0.9% 1,000 ML IV ONE (12:52)
[2020-05-06] MEDS ORDERED: cefTRIAXone 2 GM Vial IVPUSH ONE (12:58)
[2020-05-06 13:50] LABS: CHLORIDE,CL 109 mmol/L (98-107); SODIUM,NA 145 mmol/L (136-145)
[2020-05-06 13:51] LABS: ANION GAP 14.6 mmol/L (10-20)
--- NOTE | 2020-05-06 13:52 | EDM.PDOC ---
ED HPI GENERAL MEDICAL PROBLEM - General Chief Complaint: General Stated Complaint: ER Time Seen by Provider: 05/06/20 12:37 Source of Information: Reports: EMS, Group Home Records, Old Records, Provider - History of Present Illness INITIAL COMMENTS - FREE TEXT/NARRATIVE: Pt. presents to ER via EMS. Pt. was found to be minimally responsive at that [facility] this AM. His blood sugar was checked and found to be 29. Pt. was given 1 mg glucacon IM and orange juice with sugar packets. They were only able to get his blood sugar up to 51 and patient was still unresponsive so EMS was summoned. Pt. was given an amp of D50 which raised his blood sugar to 174. Pt. was still minimally responsive. group home staff states that he was fine yesterday and was "fine" early this AM during med pass. Pt. did not eat breakfast this AM, but was given lantus. Staff states he often sleeps until 11:00 AM and skips breakfast. YVONNE Lopez contacted the ER and stated that they ran an UA on the patient this AM. Pt. was found to have large leukocytes in his urine, 10-20 WBCs on micro. This was sent for culture. Staff from [facility] relates that that patient had some blood in his urine yesterday. He offered no complaints of dysuria, frequency, or urgency. Pt. is a code 2. He is minimally responsive on arrival to ER. He states that he feels "fine" when prompted. Onset: Today Onset Date: 05/06/20 Location: Reports: Generalized Treatments BEVERAGE HOST: Reports: IV/IO, Other (see below) Other Treatments BEVERAGE HOST: D50 - Related Data Allergies Allergy/AdvReac Type Severity Reaction Status Date / Time metformin Allergy Chest Verified 05/06/20 13:02 Tightness Home Meds: Home Meds Aspirin [Ecotrin EC] 81 mg PO DAILY 05/02/18 [History] Insulin Glarg,Human.Rec.Analog [Lantus] 30 unit SUBCUT DAILY 05/02/18 [History] Tamsulosin [Flomax] 0.4 mg PO DAILY 05/02/18 [History] carvediloL [Coreg] 6.25 mg PO BIDMEALS 05/02/18 [History] Mineral Oil/Petrolatum,White [Minerin] 0 gm TOP Q8H jar 05/15/18 [Rx] Nystatin [Nystatin Crm] 0 gm TOP BID tube 05/15/18 [Rx] Torsemide [Demadex] 20 mg PO BIDDIURETIC tablet 05/15/18 [Rx] atorvaSTATin [Lipitor] 10 mg PO BEDTIME tablet 05/15/18 [Rx] Acetaminophen [Tylenol] 650 mg PO Q4HR PRN 05/18/18 [History] Lisinopril 2.5 mg PO DAILY 05/18/18 [History] Potassium Chloride [Klor-Con 10] 40 meq PO BIDMEALS 05/18/18 [History] Past Medical History HEENT History: Reports: Hard of Hearing Other HEENT History: nonproliferative retinopathy Cardiovascular History: Reports: Heart Failure, High Cholesterol, Hypertension, PVD Gastrointestinal History: Reports: GERD Genitourinary History: Reports: Other (See Below) Other Genitourinary History: CKD Musculoskeletal History: Reports: Amputation, Other (See Below) Other Musculoskeletal History: BKA left leg Neurological History: Reports: Neuropathy, Peripheral, Other (See Below) Other Neuro History: restless legs Endocrine/Metabolic History: Reports: Diabetes Mellitus, Type 3c Dermatologic History: Reports: Other (See Below) Other Dermatologic History: Stage II pressure ulcer to R heel. Venous stasis ulcer to right dorsal foot Social & Family History - Family History Family Medical History: Noncontributory - Tobacco Use Smoking Status *Q: Unknown Ever Smoked - Caffeine Use Caffeine Use: Reports: Coffee - Living Situation & Occupation Living situation: Reports: Assisted Living Occupation: Retired ED ROS GENERAL - Review of Systems Review Of Systems: Unable To Obtain Reason Not Obtained: Pt. is minimally responsive; pt. unable to provide a coherent ROS Constitutional: Reports: No Symptoms HEENT: Reports: No Symptoms Respiratory: Reports: No Symptoms Cardiovascular: Reports: No Symptoms GI/Abdominal: Reports: No Symptoms : Reports: No Symptoms Skin: Reports: No Symptoms Neurological: Reports: Confusion Psychiatric: Reports: No Symptoms Hematologic/Lymphatic: Reports: No Symptoms Immunologic: Reports: No Symptoms ED EXAM, GENERAL - Physical Exam Exam: See Below Exam Limited By: No Limitations General Appearance: Alert, WD/WN, No Apparent Distress Eye Exam: Bilateral Eye: EOMI Head: Atraumatic, Normocephalic Neck: Normal Inspection, Supple, Non-Tender, Full Range of Motion Respiratory/Chest: No Respiratory Distress, Lungs Clear, Normal Breath Sounds, No Accessory Muscle Use, Chest Non-Tender Cardiovascular: Normal Peripheral Pulses, Regular Rate, Rhythm, No Edema, No JVD, No Murmur Peripheral Pulses: 4+: Radial (L) GI/Abdominal: Soft, No Distention, No Mass (Male) Exam: Deferred Rectal (Males) Exam: Deferred Extremities: Normal Inspection, Normal Range of Motion, No Pedal Edema Neurological: Alert, Oriented, CN II-XII Intact, Normal Cognition, No Motor/Sensory Deficits Psychiatric: Normal Affect, Normal Mood Course - Vital Signs Last Recorded V/S: Last Vital Signs Temp 36.2 C 05/06/20 12:37 Pulse 48 L 05/06/20 12:37 Resp 16 05/06/20 12:37 BP 88/42 L 05/06/20 12:37 Pulse Ox 97 05/06/20 12:37 - Orders/Labs/Meds Orders: Active Orders 24 hr Category Date Time Status Cardiac Monitoring [RC] CONTINUOUS Care 05/06/20 12:48 Ordered EKG Documentation Completion [RC] STAT Care 05/06/20 12:48 Ordered Blood Alcohol [ETHANOL BLOOD MEDICAL] [CHEM] Stat Lab 05/06/20 12:49 Ordered COMPREHENSIVE METABOLIC PN,CMP [CHEM] Stat Lab 05/06/20 12:48 Ordered CORONAVIRUS, COVID19 IGG AB, S [REF] Stat Lab 05/06/20 13:16 Ordered CRP [C-REACTIVE PROTEIN] [CHEM] Stat Lab 05/06/20 12:48 Ordered CULTURE BLOOD [BC] Stat Lab 05/06/20 12:50 Ordered CULTURE BLOOD [BC] Stat Lab 05/06/20 12:50 Ordered INR,PT,PROTHROMBIN TIME [COAG] Stat Lab 05/06/20 12:48 Ordered LACTIC ACID [CHEM] Stat Lab 05/06/20 12:49 Ordered MAGNESIUM [CHEM] Stat Lab 05/06/20 12:49 Ordered PRO B-TYPE NATRIUR PEPT,BNPPRO [CHEM] Stat Lab 05/06/20 12:49 Ordered TROPONIN I [CHEM] Stat Lab 05/06/20 12:48 Ordered UA RFX JOSE ALEJANDRO AND CULT IF INDIC [URIN] Stat Lab 05/06/20 12:49 Ordered Sodium Chloride 0.9% [Normal Saline] 1,000 ml Med 05/06/20 12:52 Ordered IV .BOLUS Blood Culture x2 Reflex Set [OM.PC] Stat Oth 05/06/20 12:49 Ordered Medication Orders Sodium Chloride (Normal Saline) 1,000 mls @ 1,000 mls/hr IV .BOLUS ONE Stop: 05/06/20 13:51 Labs: Laboratory Tests 05/06/20 Range/Units 13:05 WBC 13.6 H (4.0-10.0) x10^3/uL RBC 3.40 L (4.5-6.0) x10^6/uL Hgb 10.6 L D (14.0-18.0) g/dL Hct 32.5 L (40.0-52.0) % MCV 95.6 H D (78.0-93.0) fL MCH 31.2 (26.0-32.0) pg MCHC 32.6 (32.0-36.0) g/dL RDW Coeff of Karen 12.8 (10.0-15.0) % Plt Count 231 (130-400) x10^3/uL Neut % (Auto) 75.7 (50.0-80.0) % Lymph % (Auto) 14.7 L (25.0-50.0) % Hendry % (Auto) 7.7 (2.0-11.0) % Eos % (Auto) 1.5 (0.0-4.0) % Baso % (Auto) 0.4 (0.2-1.2) % Meds: Medications Generic Name Dose Route Start Last Admin Trade Name Freq PRN Reason Stop Dose Admin Sodium Chloride 1,000 mls @ 1,000 mls/hr 05/06/20 12:52 Normal Saline IV 05/06/20 13:51 .BOLUS ONE Discontinued Medications Generic Name Dose Route Start Last Admin Trade Name Freq PRN Reason Stop Dose Admin Ceftriaxone Sodium 2 gm 05/06/20 12:58 Rocephin IVPUSH 05/06/20 12:59 STAT ONE Departure - Departure Time of Disposition: 14:12 Disposition: Admitted As Inpatient 65 Clinical Impression: UTI (urinary tract infection), SILVESTRE (acute kidney injury) - Discharge Information Sepsis Event Note (ED) - Evaluation Sepsis Screening Result: No Definite Risk - Focused Exam Vital Signs: Vital Signs Temp Pulse Resp BP Pulse Ox 05/06/20 12:37 36.2 C 48 L 16 88/42 L 97 - Problem List Review Problem List Initiated/Reviewed/Updated: Yes - My Orders Last 24 Hours: My Active Orders 05/06/20 12:48 Cardiac Monitoring [RC] CONTINUOUS EKG Documentation Completion [RC] STAT COMPREHENSIVE METABOLIC PN,CMP [CHEM] Stat CRP [C-REACTIVE PROTEIN] [CHEM] Stat INR,PT,PROTHROMBIN TIME [COAG] Stat TROPONIN I [CHEM] Stat 05/06/20 12:49 Blood Alcohol [ETHANOL BLOOD MEDICAL] [CHEM] Stat LACTIC ACID [CHEM] Stat MAGNESIUM [CHEM] Stat PRO B-TYPE NATRIUR PEPT,BNPPRO [CHEM] Stat UA RFX JOSE ALEJANDRO AND CULT IF INDIC [URIN] Stat Blood Culture x2 Reflex Set [OM.PC] Stat 05/06/20 12:50 CULTURE BLOOD [BC] Stat CULTURE BLOOD [BC] Stat 05/06/20 12:52 Sodium Chloride 0.9% [Normal Saline] 1,000 ml IV .BOLUS 05/06/20 13:16 CORONAVIRUS, COVID19 IGG AB, S [REF] Stat - Assessment/Plan Last 24 Hours: My Active Orders 05/06/20 12:48 Cardiac Monitoring [RC] CONTINUOUS EKG Documentation Completion [RC] STAT COMPREHENSIVE METABOLIC PN,CMP [CHEM] Stat CRP [C-REACTIVE PROTEIN] [CHEM] Stat INR,PT,PROTHROMBIN TIME [COAG] Stat TROPONIN I [CHEM] Stat 05/06/20 12:49 Blood Alcohol [ETHANOL BLOOD MEDICAL] [CHEM] Stat LACTIC ACID [CHEM] Stat MAGNESIUM [CHEM] Stat PRO B-TYPE NATRIUR PEPT,BNPPRO [CHEM] Stat UA RFX JOSE ALEJANDRO AND CULT IF INDIC [URIN] Stat Blood Culture x2 Reflex Set [OM.PC] Stat 05/06/20 12:50 CULTURE BLOOD [BC] Stat CULTURE BLOOD [BC] Stat 05/06/20 12:52 Sodium Chloride 0.9% [Normal Saline] 1,000 ml IV .BOLUS 05/06/20 13:16 CORONAVIRUS, COVID19 IGG AB, S [REF] Stat Plan: Pt. will be admitted acute. Sal[place] Frausto will be attending and admitting. Pt. is a DNR. Pt. was given 1 liter of NS in ER and was given rocephin 2 gm IV.
[2020-05-06] MEDS ORDERED: 50% Dextrose in Water 50 ML Syringe IVPUSH PRN (15:25)
[2020-05-06] MEDS ORDERED: Glucagon,Human Recombinant 1 MG Vial IM PRN (15:25)
[2020-05-06] MEDS: Dextrose 5%-0.45% NaCl 1,000 ML IV SCH ×2 (16:04→21:49)
--- NOTE | 2020-05-06 19:22 | CR ---
[id number] RAD/RAD Chest Portable EXAM: PORTABLE CHEST RADIOGRAPH. INDICATION: DECREASED LEVEL OF CONSCIOUSNESS COMPARISON: CORRELATION IS MADE WITH MAY 05, 2018 FINDINGS: The lungs are clear The cardiomediastinal contour is enlarged but stable IMPRESSION: NO ACUTE PROCESS. Donovan Vallejo MD 05/06/20 192 Thank you for allowing us to participate in the care of your patient.
[2020-05-06] MEDS ORDERED: Loperamide 2 MG Cap PO PRN (21:09)
[2020-05-06] MEDS ORDERED: Bisacodyl 10 MG Supp RECTAL PRN (21:09)
[2020-05-06] MEDS ORDERED: QUEtiapine 25 MG Tab PO ONE (21:30)
[2020-05-06] MEDS: Cranberry 500 MG Cap PO SCH (21:42)
[2020-05-06] MEDS: Latanoprost 0.005% Ophth Soln 2.5 ML Bottle EYEBOTH SCH (21:42)
[2020-05-06] MEDS: Acetaminophen 325 MG Tab PO PRN (21:43)
[2020-05-06] MEDS: Dorzolamide/Timolol 2%-0.5% Ophth Soln 10 ML Bottle EYEBOTH SCH (21:52)
--- NOTE | 2020-05-06 22:03 | HP ---
CHIEF COMPLAINT: 1. Altered mental status. 2. Lethargy. 3. Hypoglycemia. HISTORY OF PRESENT ILLNESS: This is an 84-year-old male patient, resident of the [facility] in [place], [place], who was found to be hypoglycemic at the detention today. Despite resuscitative measures with glucagon and oral agents, the patient's blood sugar remained low and the patient remained significantly lethargic. EMS was notified to transport the patient to the local ER. Upon arrival to the detention, an IV was started and the patient was given addition of glucagon. The patient's blood sugars in the detention were 29, 30, and 74. Upon arrival to the emergency room, the patient continued to be lethargic. Laboratory work was obtained which showed leukocytosis of 13.6 as well as an elevated BUN of 41 and a creatinine of 2.6. The patient had a normal lactic acid. Other chemistries were normal. ProBNP was elevated at 1819. COVID-19 was negative. The patient does not have any recent or remote history of hypoglycemic events. The patient's blood sugars have been well controlled on his current regimen. The patient did have a UA completed at the [facility] in [place] today, which showed positive leukocytes and wbc's. The patient was given 2 g of IV Rocephin in the emergency room for the positive UA. PAST MEDICAL HISTORY: 1. Diabetes mellitus type 2. 2. Chronic heart failure. 3. Chronic kidney disease. 4. Peripheral neuropathy. 5. Peripheral vascular disease. 6. Restless legs syndrome. 7. Venous stasis. 8. Essential hypertension associated with diabetes type 2. 9. Hyperlipidemia associated with type 2 diabetes. PAST SURGICAL HISTORY: 1. 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 2. 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 FAMILY HISTORY: Noncontributory. SOCIAL HISTORY: The patient does not consume any alcohol. The patient has never used any illegal drugs. The patient is a former smoker. The patient quit smoking in 1973. LABORATORY WORK: 1. CBC: White blood cell count 13.6, hemoglobin 10.6, hematocrit 32.5, platelets are 231,000. 2. Coagulation studies: PT is 10.8, INR is 1.0. 3. CMP: Sodium is 145, potassium 3.6, chloride 109, CO2 is 25, anion gap is 14.6, BUN is 41, creatinine 2.6, GFR is 24, glucose 121, calcium 8.1, total bilirubin 0.4, AST 14, ALT 15, alkaline phosphatase 88, protein 7.1. 4. Lactic acid 1.0. 5. Magnesium 2.2. 6. Troponin less than 0.017. 7. C-reactive protein 4.4. 8. ProBNP 1819. 9. Alcohol: Negative. 10.COVID-19: Negative. IMAGING STUDIES: Chest x-ray, 1-view portable shows no acute cardiopulmonary process. MEDICATIONS: 1. Zoloft 100 mg 1 tablet p.o. daily. 2. Imodium 2 mg as directed. 3. Artificial Tears 1 drop daily as needed. 4. Carvedilol 3.125 mg 1 tablet p.o. twice daily. 5. Demadex 10 mg 1 tablet p.o. daily as needed for weight control. 6. Cosopt 1 drop to both eyes twice a day. 7. NovoLog FlexPen per sliding scale. 8. Cholecalciferol 2000 units 1 tablet p.o. daily. 9. Zofran ODT 4 mg 1 tablet p.o. sublingual every 6 hours as needed. 10.Lantus 32 units subcu daily. 11.Demadex 20 mg 1 tablet p.o. daily. 12.Flomax 0.4 mg 1 tablet p.o. daily. 13.Multivitamin 1 tablet p.o. daily. 14.Cranberry 425 mg capsule, 1 capsule 3 times daily. 15.Aspirin 81 mg 1 tablet p.o. daily. 16.Acetaminophen 650 mg 1 tablet p.o. every 4 hours as needed for pain. REVIEW OF SYSTEMS: Unable to obtain due to the patient's current medical condition. PHYSICAL EXAMINATION: Vital Signs: Height 5'8", Weight 255#, BP 88/42, RR 16, Temp 97.2, O2 sats 97%, HR 48 General: The patient is very lethargic, in no distress, cooperative. Respiratory: Lungs are decreased, but clear throughout. Cardiovascular: Bradycardia, regular rhythm, no murmur. Abdomen: Soft, nontender, bowel sounds are hypoactive x4. Skin: Clean, dry, and intact. Neurological: The patient is lethargic. The patient is slow to respond with noxious stimuli. ALLERGIES: Metformin which causes chest tightness. ASSESSMENT: 1. Sepsis secondary to urinary tract infection evidenced by Leukocytosis, hypotension, AMS 2. Hypoglycemia in the setting of diabetes mellitus type 2, on insulin. 3. Acute kidney injury on chronic kidney disease. 4. Diabetes mellitus type 2, on long-term insulin. 5. Hypertension associated with diabetes mellitus. 6. Hyperlipidemia associated with diabetes mellitus. 7. Peripheral vascular disease. 8. Restless legs syndrome. 9. Polyneuropathy associated with diabetes. 10.Chronic heart failure. 11.Stage 3 chronic kidney disease. PLAN: The patient will be admitted to acute care floor at [facility]. The patient will be started on D5 normal saline at 100 mL an hour. Accu-Cheks will be every 4 hours and as needed. We will hold beta-blockers for now due to low heart rate. The patient is a code 2. The patient will be on an ADA diet. Aspirin for DVT prophylaxis. We will see how the patient does over the next couple of days and see if his blood sugars will rebound. May need to adjust his insulin requirements. We will recheck laboratory work tomorrow morning. The patient will not be transferred to a higher level of care should the need arise. Note: This patient was seen and examined by me as an [facility] provider. TB: 05/06/2020 16:08:04 MODL: 05/06/2020 21:29:55 /[id number] LORI
[2020-05-07 07:17] LABS: ANION GAP 14.1 mmol/L (10-20)
[2020-05-07] MEDS: Aspirin 81 MG Tab.EC PO SCH (08:26)
[2020-05-07] MEDS: Tamsulosin 0.4 MG Cap.ER PO SCH (08:26)
[2020-05-07] MEDS: Cranberry 500 MG Cap PO SCH ×3 (08:26→19:59)
[2020-05-07] MEDS: cefTRIAXone 1 GM Vial IVPUSH SCH (08:26)
[2020-05-07] MEDS: Sertraline 100 MG Tab PO SCH (08:26)
[2020-05-07] MEDS: Torsemide 20 MG Tab PO SCH (08:26)
[2020-05-07] MEDS: Dorzolamide/Timolol 2%-0.5% Ophth Soln 10 ML Bottle EYEBOTH SCH ×2 (08:28→20:04)
--- NOTE | 2020-05-07 09:25 | PCM.PN ---
- General Info Date of Service: 05/07/20 Admission Dx/Problem (Free Text): 84 year old male- Day #2 hospitalization for hypoglycemia. Urosepsis based on outpatient UA Subjective Update: Patient fairly alert this morning. Denies complaints of pain. Night was unremarkable per nursing staff. However unable to collect UA - Review of Systems General: Reports: Other (ROS unobtainable secondary to patient's dementia) - Patient Data Vitals - Most Recent: Last Vital Signs Temp 37.1 C 05/07/20 08:28 Pulse 56 L 05/07/20 08:28 Resp 16 05/07/20 06:00 BP 104/52 L 05/07/20 08:28 Pulse Ox 98 05/07/20 08:28 Weight - Most Recent: 116.029 kg I&O - Last 24 Hours: Intake & Output 05/06/20 05/07/20 05/07/20 22:59 06:59 14:59 Intake Total 360 1450 500 Output Total 575 Balance 360 875 500 Lab Results Last 24 Hours: Laboratory Results - last 24 hr 05/06/20 05/06/20 05/06/20 Range/Units 13:05 13:05 13:05 WBC 13.6 H (4.0-10.0) x10^3/uL RBC 3.40 L (4.5-6.0) x10^6/uL Hgb 10.6 L D (14.0-18.0) g/dL Hct 32.5 L (40.0-52.0) % MCV 95.6 H D (78.0-93.0) fL MCH 31.2 (26.0-32.0) pg MCHC 32.6 (32.0-36.0) g/dL RDW Coeff of Karen 12.8 (10.0-15.0) % Plt Count 231 (130-400) x10^3/uL Neut % (Auto) 75.7 (50.0-80.0) % Lymph % (Auto) 14.7 L (25.0-50.0) % [place] % (Auto) 7.7 (2.0-11.0) % Eos % (Auto) 1.5 (0.0-4.0) % Baso % (Auto) 0.4 (0.2-1.2) % PT 10.8 (9.5-12.3) SEC INR 1.0 L (2.0-3.5) Sodium 145 (136-145) mmol/L Potassium 3.6 (3.5-5.1) mmol/L Chloride 109 H (98-107) mmol/L Carbon Dioxide 25 (21-32) mmol/L Anion Gap 14.6 (10-20) mmol/L BUN 41 H (7-18) mg/dL Creatinine 2.6 H (0.70-1.30) mg/dL Est Cr Clr Drug Dosing TNP Estimated GFR (MDRD) 24 Glucose 121 H (74-106) mg/dL POC Glucose (74-106) mg/dL Lactic Acid (0.4-2.0) mmol/L Calcium 8.1 L (8.5-10.1) mg/dL Corrected Calcium 8.98 (8.5-10.1) mg/dL Phosphorus (2.6-4.7) mg/dL Magnesium 2.2 (1.8-2.4) mg/dL Total Bilirubin 0.4 (0.2-1.0) mg/dL AST 14 L (15-37) U/L ALT 15 L (16-63) U/L Alkaline Phosphatase 88 (46-116) U/L Troponin I < 0.017 (<=0.056) ng/mL C-Reactive Protein 4.4 H (<=0.9) mg/dL NT-Pro-B Natriuret Pep 1819 H (<=450) pg/mL Total Protein 7.1 (6.4-8.2) g/dL Albumin 2.9 L (3.4-5.0) g/dL Globulin 4.2 Albumin/Globulin Ratio 0.69 Ethyl Alcohol < 3 (0-3) mg/dL COVID-19 (KASEY) (NEGATIVE) 05/06/20 05/06/20 05/06/20 Range/Units 13:05 13:25 15:32 WBC (4.0-10.0) x10^3/uL RBC (4.5-6.0) x10^6/uL Hgb (14.0-18.0) g/dL Hct (40.0-52.0) % MCV (78.0-93.0) fL MCH (26.0-32.0) pg MCHC (32.0-36.0) g/dL RDW Coeff of Karen (10.0-15.0) % Plt Count (130-400) x10^3/uL Neut % (Auto) (50.0-80.0) % Lymph % (Auto) (25.0-50.0) % [place] % (Auto) (2.0-11.0) % Eos % (Auto) (0.0-4.0) % Baso % (Auto) (0.2-1.2) % PT (9.5-12.3) SEC INR (2.0-3.5) Sodium (136-145) mmol/L Potassium (3.5-5.1) mmol/L Chloride (98-107) mmol/L Carbon Dioxide (21-32) mmol/L Anion Gap (10-20) mmol/L BUN (7-18) mg/dL Creatinine (0.70-1.30) mg/dL Est Cr Clr Drug Dosing Estimated GFR (MDRD) Glucose (74-106) mg/dL POC Glucose 74 (74-106) mg/dL Lactic Acid 1.0 (0.4-2.0) mmol/L Calcium (8.5-10.1) mg/dL Corrected Calcium (8.5-10.1) mg/dL Phosphorus (2.6-4.7) mg/dL Magnesium (1.8-2.4) mg/dL Total Bilirubin (0.2-1.0) mg/dL AST (15-37) U/L ALT (16-63) U/L Alkaline Phosphatase (46-116) U/L Troponin I (<=0.056) ng/mL C-Reactive Protein (<=0.9) mg/dL NT-Pro-B Natriuret Pep (<=450) pg/mL Total Protein (6.4-8.2) g/dL Albumin (3.4-5.0) g/dL Globulin Albumin/Globulin Ratio Ethyl Alcohol (0-3) mg/dL COVID-19 (KASEY) Negative (NEGATIVE) 05/06/20 05/07/20 05/07/20 Range/Units 20:01 06:16 06:40 WBC 9.6 (4.0-10.0) x10^3/uL RBC 3.37 L (4.5-6.0) x10^6/uL Hgb 10.7 L (14.0-18.0) g/dL Hct 32.0 L (40.0-52.0) % MCV 95.0 H (78.0-93.0) fL MCH 31.8 (26.0-32.0) pg MCHC 33.4 (32.0-36.0) g/dL RDW Coeff of Karen 13.0 (10.0-15.0) % Plt Count 226 (130-400) x10^3/uL Neut % (Auto) 57.9 (50.0-80.0) % Lymph % (Auto) 30.8 (25.0-50.0) % [place] % (Auto) 9.0 (2.0-11.0) % Eos % (Auto) 2.0 (0.0-4.0) % Baso % (Auto) 0.3 (0.2-1.2) % PT (9.5-12.3) SEC INR (2.0-3.5) Sodium (136-145) mmol/L Potassium (3.5-5.1) mmol/L Chloride (98-107) mmol/L Carbon Dioxide (21-32) mmol/L Anion Gap (10-20) mmol/L BUN (7-18) mg/dL Creatinine (0.70-1.30) mg/dL Est Cr Clr Drug Dosing Estimated GFR (MDRD) Glucose (74-106) mg/dL POC Glucose 124 H 115 H (74-106) mg/dL Lactic Acid (0.4-2.0) mmol/L Calcium (8.5-10.1) mg/dL Corrected Calcium (8.5-10.1) mg/dL Phosphorus (2.6-4.7) mg/dL Magnesium (1.8-2.4) mg/dL Total Bilirubin (0.2-1.0) mg/dL AST (15-37) U/L ALT (16-63) U/L Alkaline Phosphatase (46-116) U/L Troponin I (<=0.056) ng/mL C-Reactive Protein (<=0.9) mg/dL NT-Pro-B Natriuret Pep (<=450) pg/mL Total Protein (6.4-8.2) g/dL Albumin (3.4-5.0) g/dL Globulin Albumin/Globulin Ratio Ethyl Alcohol (0-3) mg/dL COVID-19 (KASEY) (NEGATIVE) 05/07/20 Range/Units 06:40 WBC (4.0-10.0) x10^3/uL RBC (4.5-6.0) x10^6/uL Hgb (14.0-18.0) g/dL Hct (40.0-52.0) % MCV (78.0-93.0) fL MCH (26.0-32.0) pg MCHC (32.0-36.0) g/dL RDW Coeff of Karen (10.0-15.0) % Plt Count (130-400) x10^3/uL Neut % (Auto) (50.0-80.0) % Lymph % (Auto) (25.0-50.0) % [place] % (Auto) (2.0-11.0) % Eos % (Auto) (0.0-4.0) % Baso % (Auto) (0.2-1.2) % PT (9.5-12.3) SEC INR (2.0-3.5) Sodium 142 (136-145) mmol/L Potassium 4.1 (3.5-5.1) mmol/L Chloride 108 H (98-107) mmol/L Carbon Dioxide 24 (21-32) mmol/L Anion Gap 14.1 (10-20) mmol/L BUN 42 H (7-18) mg/dL Creatinine 2.3 H (0.70-1.30) mg/dL Est Cr Clr Drug Dosing 22.72 Estimated GFR (MDRD) 27 Glucose 115 H (74-106) mg/dL POC Glucose (74-106) mg/dL Lactic Acid (0.4-2.0) mmol/L Calcium 8.0 L (8.5-10.1) mg/dL Corrected Calcium (8.5-10.1) mg/dL Phosphorus 4.1 (2.6-4.7) mg/dL Magnesium 2.2 (1.8-2.4) mg/dL Total Bilirubin (0.2-1.0) mg/dL AST (15-37) U/L ALT (16-63) U/L Alkaline Phosphatase (46-116) U/L Troponin I (<=0.056) ng/mL C-Reactive Protein (<=0.9) mg/dL NT-Pro-B Natriuret Pep (<=450) pg/mL Total Protein (6.4-8.2) g/dL Albumin (3.4-5.0) g/dL Globulin Albumin/Globulin Ratio Ethyl Alcohol (0-3) mg/dL COVID-19 (KASEY) (NEGATIVE) Med Orders - Current: Current Medications Acetaminophen (Tylenol) 650 mg PO Q4HR PRN PRN Reason: Pain Last Admin: 05/06/20 21:43 Dose: 650 mg Documented by: Artificial Tears (Genteal Mild To Moderate Ophth Soln) 0 ml EYEBOTH 5XDAY [facility] Aspirin (Halfprin) 81 mg PO DAILY [facility] Last Admin: 05/07/20 08:26 Dose: 81 mg Documented by: Bisacodyl (Dulcolax) 10 mg RECTAL DAILY PRN PRN Reason: Constipation Ceftriaxone Sodium (Rocephin) 1 gm IVPUSH DAILY [facility] Last Admin: 05/07/20 08:26 Dose: 1 gm Documented by: Cranberry (Cranberry) 500 mg PO TID [facility] Last Admin: 05/07/20 08:26 Dose: 500 mg Documented by: Dorzolamide/Timolol (Cosopt 2%-0.5% Ophth Soln) 0 ml EYEBOTH BID [facility] Last Admin: 05/07/20 08:28 Dose: 1 drop Documented by: Glucagon (Glucagen) 1 mg IM ONETIME PRN PRN Reason: Hypoglycemia Dextrose/Sodium Chloride (Dextrose 5%-1/2 Ns) 1,000 mls @ 100 mls/hr IV ASDIRECTED [facility] Last Admin: 05/06/20 21:49 Dose: 100 mls/hr Documented by: Latanoprost (Xalatan 0.005% Ophth Soln) 0 ml EYEBOTH BEDTIME [facility] Last Admin: 05/06/20 21:42 Dose: 1 drop Documented by: Loperamide HCl (Imodium) 2 mg PO ASDIRECTED PRN PRN Reason: Diarrhea Sertraline HCl (Zoloft) 100 mg PO DAILY [facility] Last Admin: 05/07/20 08:26 Dose: 100 mg Documented by: Tamsulosin HCl (Flomax) 0.4 mg PO DAILY [facility] Last Admin: 05/07/20 08:26 Dose: 0.4 mg Documented by: Torsemide (Demadex) 20 mg PO DAILY [facility] Last Admin: 05/07/20 08:26 Dose: 20 mg Documented by: Discontinued Medications Artificial Tears (Genteal Mild To Moderate Ophth Soln) 0 ml EYEBOTH 5XDAY [facility] Ceftriaxone Sodium (Rocephin) 2 gm IVPUSH STAT ONE Stop: 05/06/20 12:59 Last Admin: 05/06/20 13:34 Dose: 2 gm Documented by: Dextrose/Water (Dextrose 50% In Water) 25 ml IVPUSH ASDIRECTED PRN PRN Reason: Hypoglycemia Sodium Chloride (Normal Saline) 1,000 mls @ 1,000 mls/hr IV .BOLUS ONE Stop: 05/06/20 13:51 Last Admin: 05/06/20 12:50 Dose: 1,000 mls/hr Documented by: Quetiapine Fumarate (Seroquel) 50 mg PO ONETIME ONE Stop: 05/06/20 21:31 Last Admin: 05/06/20 21:43 Dose: 50 mg Documented by: - Exam General: Alert HEENT: Pupils Equal, Other (Matter present bilaterally, conjunctiva injected) Neck: Supple Lungs: Clear to Auscultation Cardiovascular: Regular Rate GI/Abdominal Exam: Normal Bowel Sounds, Soft, Non-Tender Skin: Warm, Dry Sepsis Event Note - Evaluation Sepsis Screening Result: No Definite Risk Current Stage of Sepsis: Sepsis Possible Source of Sepsis: Genitourinary - Focused Exam Sepsis Event Note Statement: Focused Sepsis Exam Completed Vital Signs: Vital Signs Temp Temp Pulse Resp BP Pulse Ox 05/07/20 08:28 37.1 C 56 L 104/52 L 98 05/07/20 06:00 36.4 C 58 L 16 163/90 H 97 05/07/20 02:00 36.8 C 56 L 16 98/51 L 98 05/06/20 21:46 36.6 C 65 16 121/62 97 Date Exam was Performed: 05/07/20 Time Exam was Performed: 09:20 - Problem List & Annotations (1) SILVESTRE (acute kidney injury) SNOMED Code(s): 46670001, 65933746 Code(s): N17.9 - ACUTE KIDNEY FAILURE, UNSPECIFIED Status: Acute Current Visit: No (2) Chronic kidney disease SNOMED Code(s): 808331099 Code(s): N18.9 - CHRONIC KIDNEY DISEASE, UNSPECIFIED Status: Chronic Priority: Medium Current Visit: No Qualifiers: Chronic kidney disease stage: unspecified stage Qualified Code(s): N18.9 - Chronic kidney disease, unspecified (3) Essential hypertension SNOMED Code(s): 52819290 Code(s): I10 - ESSENTIAL (PRIMARY) HYPERTENSION Status: Chronic Priority: Medium Current Visit: No (4) Uncontrolled diabetes mellitus SNOMED Code(s): 43775830, 249185965 Code(s): E11.65 - TYPE 2 DIABETES MELLITUS WITH HYPERGLYCEMIA Status: Chronic Priority: Medium Current Visit: No Qualifiers: Diabetes mellitus type: type 1 - Problem List Review Problem List Initiated/Reviewed/Updated: Yes - Assessment Assessment:: 1. Urosepsis 2. DM-II uncontrolled with hypoglycemic reaction - Plan Plan:: 1. Discontinue telemetry 2. Saline lock IV - pt eating and drinking well this AM 3. Monitor blood sugars.
[2020-05-07] MEDS: Acetaminophen 325 MG Tab PO PRN (19:59)
[2020-05-07] MEDS: Latanoprost 0.005% Ophth Soln 2.5 ML Bottle EYEBOTH SCH (20:00)
[2020-05-07] MEDS ORDERED: Hypromellose 0.3% Ophth Soln 15 ML Bottle EYEBOTH SCH (21:15)
[2020-05-07] MEDS: Hypromellose 0.3% Ophth Soln 15 ML Bottle EYEBOTH SCH (21:59)
[2020-05-08] MEDS: Hypromellose 0.3% Ophth Soln 15 ML Bottle EYEBOTH SCH ×3 (01:01→08:00)
[2020-05-08 07:07] LABS: ANION GAP 12.3 mmol/L (10-20)
[2020-05-08] MEDS: cefTRIAXone 1 GM Vial IVPUSH SCH (07:59)
[2020-05-08] MEDS: Cranberry 500 MG Cap PO SCH (07:59)
[2020-05-08] MEDS: Aspirin 81 MG Tab.EC PO SCH (07:59)
[2020-05-08] MEDS: Torsemide 20 MG Tab PO SCH (07:59)
[2020-05-08] MEDS: Dorzolamide/Timolol 2%-0.5% Ophth Soln 10 ML Bottle EYEBOTH SCH (07:59)
[2020-05-08] MEDS: Tamsulosin 0.4 MG Cap.ER PO SCH (07:59)
[2020-05-08] MEDS: Sertraline 100 MG Tab PO SCH (07:59)
--- NOTE | 2020-05-08 08:28 | DISCH ---
CHIEF COMPLAINT: Altered mental status. DATE OF ADMISSION: 05/06/2020 DATE OF DISCHARGE TO LONG TERM: 05/08/2020 HISTORY OF PRESENT ILLNESS: The patient was admitted to the acute care floor on 05/06/2020 for altered mental status, hypoglycemia, sepsis secondary to urinary tract infection, and clinical dehydration. The patient had been started on D5 normal saline and blood pressure medications were held due to hypotension. The patient did require glucagon on the day of admission. His blood pressure and blood sugars are back to baseline. CONSULTATIONS: Case Management. DIET: ADA. ACTIVITY: As tolerated. REVIEW OF SYSTEMS: Unable to obtain due to dementia. PHYSICAL EXAMINATION: Vital Signs: BP 115/53, RR 22, Temp 98.0, O2 98% on 2L, Weight 255#, Height 5'8", HR 51 General Presentation: The patient is alert. The patient is cooperative. The patient does not have any complaints. Respiratory: Lungs are clear to auscultation. Cardiac: Regular rate and rhythm. No murmur. Gastrointestinal: Bowel sounds are normoactive x4. Soft, nontender. Skin: Warm, dry, and intact. Neurological: The patient is oriented to self, disoriented to place and time. DISCHARGE MEDICATIONS: Acetaminophen 650 mg 1 tablet p.o. every 4 hours as needed, aspirin 81 mg 1 tablet p.o. daily, Dulcolax 10 mg rectal daily as needed, cranberry 500 mg 1 tablet p.o. 3 times daily, dorzolamide/timolol 1 drop to both eyes twice daily, Gentle Tears 1 drop to both eyes 5 times daily, latanoprost 1 drop to both eyes at bedtime, Imodium 2 mg p.o. as directed, Zoloft 100 mg 1 tablet p.o. daily, tamsulosin 0.4 mg 1 tablet p.o. daily, torsemide 20 mg 1 tablet p.o. daily, carvedilol 3.125 mg twice daily, torsemide 10 mg 1 tablet p.o. daily as needed for weight control, NovoLog FlexPen per sliding scale, Lantus 32 units subcu daily at bedtime. DISCHARGE LABORATORY WORK: CBC: White blood cell count 9.3, hemoglobin 11.0, hematocrit 33.1, platelets are 216,000. BMP: Sodium 141, potassium 4.3, chloride 108, CO2 is 25, anion gap is 12.3, BUN is 42, creatinine 2.3, glucose 137, calcium 8.0. ASSESSMENT: 1. Sepsis secondary to urinary tract infection. Evidenced by leukocytosis, hypotension, altered mental status - improved. 2. Hypoglycemia in the setting of diabetes mellitus type 2, on insulin - resolved. 3. Acute kidney injury on chronic kidney disease - stable. 4. Diabetes mellitus type 2, on long-term insulin. 5. Hypertension associated with diabetes mellitus. 6. Hyperlipidemia associated with diabetes mellitus. 7. Peripheral vascular disease. 8. Restless legs syndrome. 9. Polyneuropathy associated with diabetes. 10.Chronic heart failure. 11.Stage 3 chronic kidney disease. PLAN: The patient will be discharged back to the group home today. No changes with any medications. The patient is a code 2. Continue with ADA diet. Activity as tolerated. The patient will need a 1-week followup for transition of care with his PCP in 1 week. Note: This patient was seen and examined by me as an [facility] provider. TB: 05/08/2020 07:56:42 MODL: 05/08/2020 08:19:28 /[id number] LORI
== END 2020-05-08 10:40 | DRG 872 ==
LOC: VM.ED 12:37 → VM.MS 14:11
PROVIDERS: ADMIT Nurse Practitioner Family; ATTEND Nurse Practitioner Family
DX: A41.9 Sepsis, unspecified organism (principal); N39.0 Urinary tract infection, site not specified; N17.9 Acute kidney failure, unspecified; I13.0 Hypertensive heart and chronic kidney disease with heart failure and stage 1 through stage 4 chronic kidney disease, or unspecified chronic kidney disease; I95.9 Hypotension, unspecified; N18.9 Chronic kidney disease, unspecified; E13.22 Other specified diabetes mellitus with diabetic chronic kidney disease; E11.649 Type 2 diabetes mellitus with hypoglycemia without coma; I73.9 Peripheral vascular disease, unspecified; K21.9 Gastro-esophageal reflux disease without esophagitis; E13.42 Other specified diabetes mellitus with diabetic polyneuropathy; Z66 Do not resuscitate; E11.22 Type 2 diabetes mellitus with diabetic chronic kidney disease; Z88.8 Allergy status to other drugs, medicaments and biological substances; I12.9 Hypertensive chronic kidney disease with stage 1 through stage 4 chronic kidney disease, or unspecified chronic kidney disease; Z79.4 Long term (current) use of insulin; E78.5 Hyperlipidemia, unspecified; E11.51 Type 2 diabetes mellitus with diabetic peripheral angiopathy without gangrene; G25.81 Restless legs syndrome; E11.42 Type 2 diabetes mellitus with diabetic polyneuropathy; N18.3 Chronic kidney disease, stage 3 (moderate); I50.9 Heart failure, unspecified; Z20.828 Contact with and (suspected) exposure to other viral communicable diseases; H91.90 Unspecified hearing loss, unspecified ear; E78.00 Pure hypercholesterolemia, unspecified; L89.612 Pressure ulcer of right heel, stage 2; Z89.512 Acquired absence of left leg below knee; Z79.82 Long term (current) use of aspirin; Z79.899 Other long term (current) drug therapy; I87.8 Other specified disorders of veins
CPT/HCPCS: 36415; 71045; 80053; 80307; 83605; 83735; 83880; 84484; 85025; 85610; 86140; 87040 ×2; 93005; 96361; 96374; 99284; 99285; J0696; J7030; U0002; 80048; 82962; 84100; 85027; 94660; A9270-GY; J7042

== ENCOUNTER 2021-10-12 15:46 | Emergency (ER) | payer MEDICARE ==
[2021-10-12] MEDS ORDERED: Dicyclomine 10 MG Cap PO ONE (16:42)
[2021-10-12] MEDS ORDERED: Sodium Chloride 0.9% 1,000 ML IV SCH (16:45)
--- NOTE | 2021-10-12 17:07 | EDM.PDOC ---
ED HPI GENERAL MEDICAL PROBLEM - General Chief Complaint: Abdominal Pain Stated Complaint: Abdominal discomfort Time Seen by Provider: 10/12/21 16:20 Source of Information: Reports: Patient, EMS, [facility] Records History Limitations: Reports: Other (Significant hearing impairment but the patient does respond to questions asked he is alert and oriented x [address] and time location) - History of Present Illness INITIAL COMMENTS - FREE TEXT/NARRATIVE: Patient was sent over via EMS from the care facility secondary to abdominal discomfort and one episode of bloody bowel movement. Per his primary care provider he has been having some in the past and passing clots. When the patient is asked about his abdominal pain he said is more discomfort than pain and it hurts just a little he cannot quantify the number. He says he has been eating and drinking fine he has no other complaints at this time besides wanting a glass of water. Onset: Today Location: Reports: Abdomen Quality: Reports: Other (Discomfort) Severity: Mild Improves with: Reports: None Worsens with: Reports: None Associated Symptoms: Reports: No Other Symptoms - Related Data Allergies Allergy/AdvReac Type Severity Reaction Status Date / Time metformin Allergy Chest Verified 05/06/20 13:02 Tightness Home Meds: Home Meds Aspirin [Ecotrin EC] 81 mg PO DAILY 05/02/18 [History] Insulin Glarg,Human.Rec.Analog [Lantus] 32 unit SUBCUT DAILY 05/02/18 [History] Tamsulosin [Flomax] 0.4 mg PO DAILY 05/02/18 [History] Acetaminophen [Tylenol] 650 mg PO Q4HR PRN 05/18/18 [History] Bisacodyl [Laxative Suppository] 10 mg RC DAILY PRN 05/06/20 [History] Carboxymethylcellulose Sodium [Artificial Tears] 1 drop EYEBOTH 5XDAY 05/06/20 [History] Cholecalciferol (Vitamin D3) [Vitamin D3] 2,000 unit PO DAILY 05/06/20 [History] Cranberry Fruit Extract [Cranberry] 425 mg PO TID 05/06/20 [History] Dorzolamide/Timolol [Cosopt 2%-0.5% Ophth Soln] 1 drop EYEBOTH BID 05/06/20 [History] Insulin Aspart [NovoLOG] 4 unit SQ DAILY@1200 05/06/20 [History] Insulin Aspart [NovoLOG] 8 unit SQ DAILY@1800 05/06/20 [History] Latanoprost 1 drop EYEBOTH BEDTIME 05/06/20 [History] Loperamide [Imodium] 2 mg PO ASDIRECTED PRN MDD 8 mg per 24 hour 05/06/20 [History] Multivitamin with Minerals [Multiple Vitamin] 1 tab PO DAILY 05/06/20 [History] Ondansetron [Zofran] 4 mg PO BIDAC 05/06/20 [History] Ondansetron [Zofran] 4 mg PO Q6H PRN 05/06/20 [History] Sertraline HCl 100 mg PO DAILY 05/06/20 [History] Torsemide [Demadex] 10 mg PO DAILY PRN 05/06/20 [History] Torsemide [Demadex] 20 mg PO DAILY 05/06/20 [History] carvediloL [Carvedilol] 3.125 mg PO BIDMEALS 05/06/20 [History] Past Medical History HEENT History: Reports: Hard of Hearing Other HEENT History: nonproliferative retinopathy Cardiovascular History: Reports: Heart Failure, High Cholesterol, Hypertension, PVD Gastrointestinal History: Reports: GERD Genitourinary History: Reports: Other (See Below) Other Genitourinary History: CKD Musculoskeletal History: Reports: Amputation, Other (See Below) Other Musculoskeletal History: BKA left leg Neurological History: Reports: Neuropathy, Peripheral, Other (See Below) Other Neuro History: restless legs Endocrine/Metabolic History: Reports: Diabetes Mellitus, Type 3c Dermatologic History: Reports: Other (See Below) Other Dermatologic History: Stage II pressure ulcer to R heel. Venous stasis ulcer to right dorsal foot Social & Family History - Family History Family Medical History: No Pertinent Family History - Caffeine Use Caffeine Use: Reports: None - Living Situation & Occupation Living situation: Reports: Assisted Living Occupation: Retired ED ROS GENERAL - Review of Systems Review Of Systems: See Below Constitutional: Reports: No Symptoms. Denies: Fever, Chills, Malaise, Weakness, Fatigue HEENT: Reports: No Symptoms Respiratory: Reports: No Symptoms. Denies: Shortness of Breath, Wheezing, Cough Cardiovascular: Reports: No Symptoms Endocrine: Reports: No Symptoms GI/Abdominal: Reports: Abdominal Pain, Bloody Stool. Denies: Black Stool, Constipation, Diarrhea, Decreased Appetite, Distension, Flatus, Hematemesis, Hematochezia, Mucous in Stool, Nausea, Vomiting : Reports: No Symptoms Musculoskeletal: Reports: No Symptoms Skin: Reports: No Symptoms Neurological: Reports: No Symptoms Hematologic/Lymphatic: Reports: No Symptoms. Denies: Anemia, Easy Bleeding, Easy Bruising ED EXAM, GI/ABD - Physical Exam Exam: See Below Exam Limited By: No Limitations General Appearance: Alert, WD/WN, No Apparent Distress, Other (Patient laying in the bed no acute distress noted actively drinking water) Eyes: Bilateral: Normal Appearance, EOMI Ears: Other (Significant hard of hearing) Nose: Normal Inspection, Normal Mucosa, No Blood Throat/Mouth: Normal Inspection, Normal Lips, Normal Teeth, Normal Gums, Normal Oropharynx, Normal Voice, No Airway Compromise, Other (Positive dry mucous membranes) Head: Atraumatic, Normocephalic Neck: Normal Inspection, Supple, Non-Tender, Full Range of Motion Respiratory/Chest: No Respiratory Distress, Lungs Clear, Normal Breath Sounds, No Accessory Muscle Use, Chest Non-Tender Cardiovascular: Normal Peripheral Pulses, Regular Rate, Rhythm, No Edema, No Gallop, No JVD, No Murmur, No Rub GI/Abdominal Exam: Normal Bowel Sounds, Soft, Non-Tender, No Organomegaly, No Distention, No Abnormal Bruit (No peritoneal signs). No: Guarding, Rigid, Rebound, Tender Back Exam: Normal Inspection, Full Range of Motion Extremities: Normal Inspection, Normal Range of Motion, Other (Patient has a left BKA and is in a raised walking boot on the right no noted edema). No: No Pedal Edema Neurological: Alert, Oriented, CN II-XII Intact, Normal Cognition (Patient is alert and oriented x3 follows commands) Psychiatric: Normal Affect, Normal Mood Skin Exam: Warm, Dry, Normal Color, No Rash Lymphatic: No Adenopathy Course - Vital Signs Text/Narrative:: CBC BMP urinalysis Hemoccult normal saline 1 L bolus White count within normal limits hemoglobin hematocrit within normal limits noted chronic elevated BUN and creatinine as in comparison with the last labs drawn on 30 September where the BUN and creatinine was 67/2.8 patient has chronic kidney disease Hemoccult negative patient will be discharged back to the care facility - Orders/Labs/Meds Orders: Active Orders 24 hr Category Date Time Status UA W/MICROSCOPIC [URIN] Stat Lab 10/12/21 16:36 Ordered Sodium Chloride 0.9% [Normal Saline] 1,000 ml Med 10/12/21 16:45 Active IV ASDIRECTED Sodium Chloride 0.9% [Normal Saline] 500 ml Med 10/12/21 17:38 Active IV ONETIME Medication Orders Sodium Chloride (Normal Saline) 1,000 mls @ 500 mls/hr IV ASDIRECTED BETI Sodium Chloride (Normal Saline) 500 mls @ 500 mls/hr IV ONETIME ONE Stop: 10/12/21 18:37 Labs: Laboratory Tests 10/12/21 10/12/21 Range/Units 16:50 16:50 WBC 11.5 H (4.0-10.0) x10^3/uL RBC 3.70 L (4.5-6.0) x10^6/uL Hgb 9.8 L (14.0-18.0) g/dL Hct 30.4 L (40.0-52.0) % MCV 82.2 (78.0-93.0) fL MCH 26.5 (26.0-32.0) pg MCHC 32.2 (32.0-36.0) g/dL RDW Coeff of Karen 17.8 H (10.0-15.0) % Plt Count 292 (130-400) x10^3/uL Immature Gran % (Auto) 0.30 (0.00-0.43) % Neut % (Auto) 65.2 (50.0-80.0) % Lymph % (Auto) 24.0 L (25.0-50.0) % Ness % (Auto) 8.5 (2.0-11.0) % Eos % (Auto) 1.7 (0.0-4.0) % Baso % (Auto) 0.3 (0.2-1.2) % Neut # (Auto) 7.5 (1.8-7.7) x10^3/uL Lymph # (Auto) 2.8 (1.0-4.8) x10^3/uL Ness # (Auto) 1.0 H (0.0-0.8) x10^3/uL Eos # (Auto) 0.2 (0.0-0.5) x10^3/uL Baso # (Auto) 0.0 (0.0-0.2) x10^3/uL Immature Gran # (Auto) 0.03 (0.00-0.07) x10^3/uL Sodium 146 H (136-145) mmol/L Potassium 3.8 (3.5-5.1) mmol/L Chloride 113 H (98-107) mmol/L Carbon Dioxide 16 L (21-32) mmol/L Anion Gap 20.8 H (5-15) mmol/L BUN 70 H (7-18) mg/dL Creatinine 2.7 H (0.70-1.30) mg/dL Est Cr Clr Drug Dosing TNP Estimated GFR (MDRD) 22 Glucose 71 (70-99) mg/dL Calcium 8.5 (8.5-10.1) mg/dL Meds: Medications Generic Name Dose Route Start Last Admin Trade Name Freq PRN Reason Stop Dose Admin Sodium Chloride 1,000 mls @ 500 mls/hr 10/12/21 16:45 Normal Saline IV ASDIRECTED BETI Sodium Chloride 500 mls @ 500 mls/hr 10/12/21 17:38 Normal Saline IV 10/12/21 18:37 ONETIME ONE Discontinued Medications Generic Name Dose Route Start Last Admin Trade Name Freq PRN Reason Stop Dose Admin Dicyclomine HCl 10 mg 10/12/21 16:42 Dicyclomine 10 Mg Cap PO 10/12/21 16:43 ONETIME ONE Departure - Departure Time of Disposition: 18:00 Disposition: DC/Tfer to [facility] Condition: Good Clinical Impression: Abdominal discomfort - Discharge Information *PRESCRIPTION DRUG MONITORING PROGRAM REVIEWED*: No *COPY OF PRESCRIPTION DRUG MONITORING REPORT IN PATIENT NELL: No Referrals: Casandra Hernandez DO [Primary Care Provider] - Forms: ED Department Discharge - Problem List & Annotations (1) Abdominal discomfort SNOMED Code(s): 08728281 Code(s): R10.9 - UNSPECIFIED ABDOMINAL PAIN Status: Acute Current Visit: Yes - My Orders Last 24 Hours: My Active Orders 10/12/21 16:36 UA W/MICROSCOPIC [URIN] Stat 10/12/21 16:45 Sodium Chloride 0.9% [Normal Saline] 1,000 ml IV ASDIRECTED 10/12/21 17:38 Sodium Chloride 0.9% [Normal Saline] 500 ml IV ONETIME - Assessment/Plan Last 24 Hours: My Active Orders 10/12/21 16:36 UA W/MICROSCOPIC [URIN] Stat 10/12/21 16:45 Sodium Chloride 0.9% [Normal Saline] 1,000 ml IV ASDIRECTED 10/12/21 17:38 Sodium Chloride 0.9% [Normal Saline] 500 ml IV ONETIME
[2021-10-12 17:21] LABS: CHLORIDE,CL 113 mmol/L (98-107); SODIUM,NA 146 mmol/L (136-145)
[2021-10-12 17:22] LABS: ANION GAP 20.8 mmol/L (5-15)
[2021-10-12] MEDS ORDERED: Sodium Chloride 0.9% 500 ML IV ONE (17:38)
== END 2021-10-12 18:48 ==
LOC: VM.ED 15:46
DX: R10.9 Unspecified abdominal pain (principal); I13.0 Hypertensive heart and chronic kidney disease with heart failure and stage 1 through stage 4 chronic kidney disease, or unspecified chronic kidney disease; E11.22 Type 2 diabetes mellitus with diabetic chronic kidney disease; N18.9 Chronic kidney disease, unspecified; I50.9 Heart failure, unspecified; E11.42 Type 2 diabetes mellitus with diabetic polyneuropathy; Z88.8 Allergy status to other drugs, medicaments and biological substances; Z79.82 Long term (current) use of aspirin; Z79.4 Long term (current) use of insulin; Z79.899 Other long term (current) drug therapy
CPT/HCPCS: 36415; 80048; 82274; 85025; 99284; 99285; J7030

== ENCOUNTER 2021-10-21 12:46 | Inpatient (IN) | payer MEDICARE ==
[2021-10-21] MEDS ORDERED: Ondansetron 4 MG/2 ML SDV IVPUSH ONE (12:49)
[2021-10-21] MEDS ORDERED: Sodium Chloride 0.9% 10 ML Syringe FLUSH PRN (12:49)
[2021-10-21] MEDS ORDERED: Sodium Chloride 0.9% 1,000 ML IV ONE ×2 (12:49→13:31)
--- NOTE | 2021-10-21 13:02 | EDM.PDOC ---
ED HPI GENERAL MEDICAL PROBLEM - General Chief Complaint: Gastrointestinal Problem Stated Complaint: nausea, vomiting, diarrhea Time Seen by Provider: 10/21/21 12:46 Source of Information: Reports: Patient, EMS, EMS Notes Reviewed, [facility] ecords History Limitations: Reports: Other (hard of hearing, cognitive impairment) - History of Present Illness INITIAL COMMENTS - FREE TEXT/NARRATIVE: Patient is sent from the group home today for low blood glucose, low blood pressure, nausea, vomiting and 5 diarrhea stools today. Patient is not eating or drinking, and had a low glucose at the group home treated with orange juice. EMS arrived, glucose was 75. Patient denies any pain. has only had N/V/D today. no fevers DNI/DNR. Poor historian, very hard of hearing Onset: Today - Related Data Allergies Allergy/AdvReac Type Severity Reaction Status Date / Time metformin Allergy Chest Verified 10/12/21 18:09 Tightness Home Meds: Home Meds Aspirin [Ecotrin EC] 81 mg PO DAILY 05/02/18 [History] Insulin Glarg,Human.Rec.Analog [Lantus] 32 unit SUBCUT DAILY 05/02/18 [History] Tamsulosin [Flomax] 0.4 mg PO DAILY 05/02/18 [History] Acetaminophen [Tylenol] 650 mg PO Q4HR PRN 05/18/18 [History] Bisacodyl [Laxative Suppository] 10 mg RC DAILY PRN 05/06/20 [History] Carboxymethylcellulose Sodium [Artificial Tears] 1 drop EYEBOTH 05/06/20 [History] Cholecalciferol (Vitamin D3) [Vitamin D3] 2,000 unit PO DAILY 05/06/20 [History] Cranberry Fruit Extract [Cranberry] 425 mg PO TID 05/06/20 [History] Dorzolamide/Timolol [Cosopt 2%-0.5% Ophth Soln] 1 drop EYEBOTH BID 05/06/20 [History] Insulin Aspart [NovoLOG] 4 unit SQ DAILY@1200 05/06/20 [History] Insulin Aspart [NovoLOG] 8 unit SQ DAILY@1800 05/06/20 [History] Latanoprost 1 drop EYEBOTH BEDTIME 05/06/20 [History] Loperamide [Imodium] 2 mg PO ASDIRECTED PRN MDD 8 mg per 24 hour 05/06/20 [History] Multivitamin with Minerals [Multiple Vitamin] 1 tab PO DAILY 05/06/20 [History] Ondansetron [Zofran] 4 mg PO BIDAC 05/06/20 [History] Ondansetron [Zofran] 4 mg PO Q6H PRN 05/06/20 [History] Sertraline HCl 100 mg PO DAILY 05/06/20 [History] Torsemide [Demadex] 10 mg PO DAILY PRN 05/06/20 [History] Torsemide [Demadex] 20 mg PO DAILY 05/06/20 [History] carvediloL [Carvedilol] 3.125 mg PO BIDMEALS 05/06/20 [History] Past Medical History HEENT History: Reports: Hard of Hearing Other HEENT History: nonproliferative retinopathy Cardiovascular History: Reports: Heart Failure, High Cholesterol, Hypertension, PVD Gastrointestinal History: Reports: GERD Genitourinary History: Reports: Other (See Below) Other Genitourinary History: CKD Musculoskeletal History: Reports: Amputation, Other (See Below) Other Musculoskeletal History: BKA left leg Neurological History: Reports: Neuropathy, Peripheral, Other (See Below) Other Neuro History: restless legs Endocrine/Metabolic History: Reports: Diabetes Mellitus, Type 3c Dermatologic History: Reports: Other (See Below) Other Dermatologic History: Stage II pressure ulcer to R heel. Venous stasis ulcer to right dorsal foot Social & Family History - Family History Family Medical History: No Pertinent Family History - Caffeine Use Caffeine Use: Reports: None - Recreational Drug Use Recreational Drug Use: No Drug Use in Last 12 Months: No - Living Situation & Occupation Living situation: Reports: Assisted Living Occupation: Retired ED ROS GENERAL - Review of Systems Review Of Systems: See Below Reason Not Obtained: hard of hearing, cognitive impairment Constitutional: Denies: Fever, Chills HEENT: Reports: No Symptoms Respiratory: Reports: No Symptoms Cardiovascular: Reports: No Symptoms GI/Abdominal: Reports: Diarrhea, Nausea, Vomiting : Reports: Other (decreased) Musculoskeletal: Reports: No Symptoms, Other (amputated let leg BKA, mid foot amputation right foot) ED EXAM, GENERAL - Physical Exam Exam: See Below Exam Limited By: Other (confusion, dementia) General Appearance: Alert, Mild Distress Eye Exam: Bilateral Eye: EOMI, Normal Inspection, PERRL Ears: Normal External Exam, Normal Canal, Hearing Loss Nose: Normal Inspection Throat/Mouth: Other (large tongue, mouth breather, mild dry) Head: Atraumatic Neck: Normal Inspection Respiratory/Chest: No Respiratory Distress, Lungs Clear, Normal Breath Sounds Cardiovascular: Regular Rate, Rhythm, No JVD GI/Abdominal: Normal Bowel Sounds, Distended, Tender Extremities: Other (left BKA some abrasions noted, no signs of infection. right midfot ampuation. dermi statis changes noted) #1 Interpretation EKG Date: 10/21/21 Time: 13:41 Rhythm: NSR Rate (Beats/Min): 75 Point [place]: Normal P-Wave: Present QRS: Normal ST-T: Normal QT: Normal Comparison: No Change Course - Orders/Labs/Meds Orders: Active Orders 24 hr Category Date Time Status Admission Status [Patient Status] [ADT] Routine ADT 10/21/21 14:42 Active EKG Documentation Completion [RC] STAT Care 10/21/21 13:29 Active Gastrointestinal Tube Mgmt [RC] ASDIRECTED Care 10/21/21 13:50 Active Abdomen 1V Upright [CR] Stat Exams 10/21/21 13:50 Ordered Chest 1V Frontal [CR] Stat Exams 10/21/21 13:50 Ordered CULTURE BLOOD [BC] Stat Lab 10/21/21 14:17 Received CULTURE BLOOD [BC] Stat Lab 10/21/21 14:24 Results Sodium Chloride 0.9% [Saline Flush] Med 10/21/21 12:49 Active 10 ml FLUSH ASDIRECTED PRN Blood Culture x2 Reflex Set [OM.PC] Stat Oth 10/21/21 13:57 Ordered Nasogastric Orogastric Tube Insertion [OM.PC] Routine Oth 10/21/21 13:50 Ordered Peripheral IV Insertion Adult [OM.PC] Routine Oth 10/21/21 12:49 Ordered Medication Orders Sodium Chloride (Sodium Chloride 0.9% 10 Ml Syringe) 10 ml FLUSH ASDIRECTED PRN PRN Reason: Keep Vein Open Labs: Laboratory Tests 10/21/21 10/21/21 10/21/21 Range/Units 12:55 12:55 12:55 WBC 19.3 H (4.0-10.0) x10^3/uL RBC 4.27 L (4.5-6.0) x10^6/uL Hgb 11.3 L D (14.0-18.0) g/dL Hct 34.5 L (40.0-52.0) % MCV 80.8 (78.0-93.0) fL MCH 26.5 (26.0-32.0) pg MCHC 32.8 (32.0-36.0) g/dL RDW Coeff of Karen 18.7 H (10.0-15.0) % Plt Count 324 (130-400) x10^3/uL Immature Gran % (Auto) 0.20 (0.00-0.43) % Neut % (Auto) 82.6 H (50.0-80.0) % Lymph % (Auto) 12.1 L (25.0-50.0) % Weld % (Auto) 4.7 (2.0-11.0) % Eos % (Auto) 0.2 (0.0-4.0) % Baso % (Auto) 0.2 (0.2-1.2) % Neut # (Auto) 15.9 H (1.8-7.7) x10^3/uL Lymph # (Auto) 2.3 (1.0-4.8) x10^3/uL Weld # (Auto) 0.9 H (0.0-0.8) x10^3/uL Eos # (Auto) 0.0 (0.0-0.5) x10^3/uL Baso # (Auto) 0.0 (0.0-0.2) x10^3/uL Immature Gran # (Auto) 0.04 (0.00-0.07) x10^3/uL Sodium 154 H (136-145) mmol/L Potassium 2.8 L* (3.5-5.1) mmol/L Chloride 119 H (98-107) mmol/L Carbon Dioxide 16 L (21-32) mmol/L Anion Gap 21.8 H (5-15) mmol/L BUN 73 H* (7-18) mg/dL Creatinine 3.0 H (0.70-1.30) mg/dL Est Cr Clr Drug Dosing TNP Estimated GFR (MDRD) 20 Glucose 82 (70-99) mg/dL Lactic Acid 1.3 (0.4-2.0) mmol/L Calcium 8.9 (8.5-10.1) mg/dL Corrected Calcium 9.9 (8.5-10.1) mg/dL Magnesium (1.8-2.4) mg/dL Total Bilirubin 0.7 (0.2-1.0) mg/dL AST 36 (15-37) U/L ALT 16 (16-63) U/L Alkaline Phosphatase 102 (46-116) U/L C-Reactive Protein 53.6 H (<=0.9) mg/dL Total Protein 7.8 (6.4-8.2) g/dL Albumin 2.8 L (3.4-5.0) g/dL Globulin 5.0 Albumin/Globulin Ratio 0.56 Lipase 19 L (73-393) U/L Influenza Type A RNA (NEGATIVE) RSV RNA (INAAT) (NEGATIVE) Influenza Type B RNA (NEGATIVE) SARS-CoV-2 RNA (KASEY) (NEGATIVE) 10/21/21 10/21/21 Range/Units 12:55 13:58 WBC (4.0-10.0) x10^3/uL RBC (4.5-6.0) x10^6/uL Hgb (14.0-18.0) g/dL Hct (40.0-52.0) % MCV (78.0-93.0) fL MCH (26.0-32.0) pg MCHC (32.0-36.0) g/dL RDW Coeff of Karen (10.0-15.0) % Plt Count (130-400) x10^3/uL Immature Gran % (Auto) (0.00-0.43) % Neut % (Auto) (50.0-80.0) % Lymph % (Auto) (25.0-50.0) % Weld % (Auto) (2.0-11.0) % Eos % (Auto) (0.0-4.0) % Baso % (Auto) (0.2-1.2) % Neut # (Auto) (1.8-7.7) x10^3/uL Lymph # (Auto) (1.0-4.8) x10^3/uL Weld # (Auto) (0.0-0.8) x10^3/uL Eos # (Auto) (0.0-0.5) x10^3/uL Baso # (Auto) (0.0-0.2) x10^3/uL Immature Gran # (Auto) (0.00-0.07) x10^3/uL Sodium (136-145) mmol/L Potassium (3.5-5.1) mmol/L Chloride (98-107) mmol/L Carbon Dioxide (21-32) mmol/L Anion Gap (5-15) mmol/L BUN (7-18) mg/dL Creatinine (0.70-1.30) mg/dL Est Cr Clr Drug Dosing Estimated GFR (MDRD) Glucose (70-99) mg/dL Lactic Acid (0.4-2.0) mmol/L Calcium (8.5-10.1) mg/dL Corrected Calcium (8.5-10.1) mg/dL Magnesium 2.7 H (1.8-2.4) mg/dL Total Bilirubin (0.2-1.0) mg/dL AST (15-37) U/L ALT (16-63) U/L Alkaline Phosphatase (46-116) U/L C-Reactive Protein (<=0.9) mg/dL Total Protein (6.4-8.2) g/dL Albumin (3.4-5.0) g/dL Globulin Albumin/Globulin Ratio Lipase (73-393) U/L Influenza Type A RNA Negative (NEGATIVE) RSV RNA (INAAT) Negative (NEGATIVE) Influenza Type B RNA Negative (NEGATIVE) SARS-CoV-2 RNA (KASEY) Negative (NEGATIVE) Meds: Medications Generic Name Dose Route Start Last Admin Trade Name Freq PRN Reason Stop Dose Admin Sodium Chloride 10 ml 10/21/21 12:49 Sodium Chloride 0.9% 10 Ml Syringe FLUSH ASDIRECTED PRN Keep Vein Open Discontinued Medications Generic Name Dose Route Start Last Admin Trade Name Freq PRN Reason Stop Dose Admin Sodium Chloride 1,000 mls @ 999 mls/hr 10/21/21 12:49 10/21/21 13:49 Normal Saline IV 10/21/21 13:49 999 mls/hr ONETIME ONE Administration Potassium Chloride 20 meq/ 50 mls @ 50 mls/hr 10/21/21 13:29 10/21/21 13:49 Premix IV 10/21/21 14:28 50 mls/hr ONETIME ONE Administration Potassium Chloride 20 meq/ 50 mls @ 50 mls/hr 10/21/21 13:30 Premix IV 10/21/21 14:29 ONETIME ONE Sodium Chloride 1,000 mls @ 999 mls/hr 10/21/21 13:31 Normal Saline IV 10/21/21 14:31 ONETIME ONE Piperacillin Sod/Tazobactam 100 mls @ 200 mls/hr 10/21/21 13:57 10/21/21 15:06 Sod 4.5 gm/ Sodium Chloride IV 10/21/21 14:26 200 mls/hr STAT ONE Administration Ondansetron HCl 4 mg 10/21/21 12:49 10/21/21 13:40 Ondansetron 4 Mg/2 Ml Sdv IVPUSH 10/21/21 12:50 4 mg ONETIME ONE Administration - Radiology Interpretation Free Text/Narrative:: ct scan with multiple fluid distended loops of small and large bowel. increased when compared to prior study mass like asymmetric thickening involving the distal descending colon/proximal sigmoid colon concerning for obstructing mass. interpreted by radiology. - Re-Assessments/Exams Free Text/Narrative Re-Assessment/Exam: Iv fluids started, ct without contrast abdomen and pelvis given CKD. Zofran for nasuea. luekocytosis noted, potassium low at 2.8. 40 meq potassium IV started. 1345 CT with dilated bowel, needs NG tube. will get blood cultures and start zosyn 10/21/21 10/21/21 14:06 left message for person to notify friend, michelle and neveronica hSah to call back to discuss transfer, options for surgery etc. 10/21/21 14:14 Alyssa dose call back , discussed risks of surgery and complications and possible and trasnferring or admission for NG, comfort cares and limited interventions. She will discuss with her siblings and call back 10/21/21 15:09 Alyssa and her sister call back, have discussion as to concern for bowel mass, risk of surgery and his wishes. They do not think he would want surgery and transfer. AT this time they want admission, medical management with IV antibiotics, potassium, fluids and NG suction. They are willing to discuss palliative care/hospice if her is worsening. Will admit Departure - Departure Time of Disposition: 14:41 Disposition: Admitted As Inpatient 65 Clinical Impression: Hypokalemia, Vomiting and diarrhea, Bowel obstruction, Leukocytosis, Mass of co yumiko - Discharge Information - My Orders Last 24 Hours: My Active Orders 10/21/21 12:49 Sodium Chloride 0.9% [Saline Flush] 10 ml FLUSH ASDIRECTED PRN Peripheral IV Insertion Adult [OM.PC] Routine 10/21/21 13:29 EKG Documentation Completion [RC] STAT 10/21/21 13:50 Gastrointestinal Tube Mgmt [RC] ASDIRECTED Abdomen 1V Upright [CR] Stat Chest 1V Frontal [CR] Stat Nasogastric Orogastric Tube Insertion [OM.PC] Routine 10/21/21 13:57 Blood Culture x2 Reflex Set [OM.PC] Stat 10/21/21 14:17 CULTURE BLOOD [BC] Stat 10/21/21 14:24 CULTURE BLOOD [BC] Stat 10/21/21 14:42 Admission Status [Patient Status] [ADT] Routine - Assessment/Plan Last 24 Hours: My Active Orders 10/21/21 12:49 Sodium Chloride 0.9% [Saline Flush] 10 ml FLUSH ASDIRECTED PRN Peripheral IV Insertion Adult [OM.PC] Routine 10/21/21 13:29 EKG Documentation Completion [RC] STAT 10/21/21 13:50 Gastrointestinal Tube Mgmt [RC] ASDIRECTED Abdomen 1V Upright [CR] Stat Chest 1V Frontal [CR] Stat Nasogastric Orogastric Tube Insertion [OM.PC] Routine 10/21/21 13:57 Blood Culture x2 Reflex Set [OM.PC] Stat 10/21/21 14:17 CULTURE BLOOD [BC] Stat 10/21/21 14:24 CULTURE BLOOD [BC] Stat 10/21/21 14:42 Admission Status [Patient Status] [ADT] Routine
[2021-10-21 13:26] LABS: CHLORIDE,CL 119 mmol/L (98-107); SODIUM,NA 154 mmol/L (136-145)
[2021-10-21 13:28] LABS: ANION GAP 21.8 mmol/L (5-15)
[2021-10-21] MEDS ORDERED: Potassium Chloride Riders 20 MEQ in Premix Bag 1 BAG IV ONE ×2 (13:29→13:30)
[2021-10-21] MEDS ORDERED: Piperacillin/Tazobactam 4.5 GM in Sodium Chloride 0.9% 100 ML IV ONE (13:57)
--- NOTE | 2021-10-21 13:59 | CT ---
[id number] CT/CT Abdomen Pelvis WO IV EXAM: CT Abdomen Pelvis WO IV CLINICAL DATA: ABDOMINAL DISTENSION, DIARRHEA, VOMITING. COMPARISON STUDY: 09/30/2021. FINDINGS: Trace right pleural effusion. Bibasilar atelectasis and/or infiltrate. The heart is enlarged. Coronary artery disease. Atherosclerotic calcifications of the aorta and its branches. The liver, spleen, pancreas, adrenal glands are unremarkable. Punctate nonobstructing left renal calculus. The kidneys are mildly atrophic. Bilateral renal cortical cysts. Multiple prominent fluid distended loops of large and small bowel. This is increased when compared to prior study. No pneumatosis, free fluid or free air. There is asymmetric masslike thickening of the distal descending colon/proximal sigmoid colon (series 6 image 53) (series 2 image 119). No lymphadenopathy, free fluid, or pneumoperitoneum. Circumferential wall thickening the urinary bladder likely secondary to chronic outlet obstruction the setting of enlarged prostate. Scattered changes of spondylosis the spine. Numerous sclerotic foci seen throughout the osseous structures.. IMPRESSION: Multiple fluid distended loops of small and large bowel. This is increased when compared to prior study. Mass like asymmetric thickening involving the distal descending colon/proximal sigmoid colon (series 6 image 53) (series 2 image 119) concerning for obstructing mass. Will Zuniga DO 10/21/21 0333 Thank you for allowing us to participate in the care of your patient.
[2021-10-21 14:41] LABS: CORONAVIRUS COVID-19 NAA NEGATIVE (NEGATIVE); RESPIRATORY SYNCYTIAL VIR NAA NEGATIVE (NEGATIVE)
[2021-10-21] MEDS ORDERED: Promethazine 12.5 MG in Sodium Chloride 0.9% 100 ML IV PRN (15:12)
[2021-10-21] MEDS ORDERED: 50% Dextrose in Water 50 ML Syringe IVPUSH PRN (15:12)
[2021-10-21] MEDS ORDERED: Acetaminophen/HYDROcodone 325-5 MG Tab PO PRN (15:12)
[2021-10-21] MEDS ORDERED: Acetaminophen 325 MG Tab PO PRN (15:12)
[2021-10-21] MEDS ORDERED: Glucagon,Human Recombinant 1 MG Vial IM PRN (15:12)
[2021-10-21] MEDS ORDERED: Morphine 2 MG/ML SYRINGE IVPUSH PRN (15:12)
[2021-10-21] MEDS ORDERED: Ondansetron 4 MG Tab.DIS PO PRN (15:12)
[2021-10-21] MEDS ORDERED: Docusate Sodium 100 MG Cap PO PRN (15:12)
[2021-10-21] MEDS ORDERED: Sodium Chloride 0.9% 1,000 ML IV SCH (15:15)
[2021-10-21] MEDS ORDERED: LORazepam 2 MG/ML SDV IVPUSH PRN (15:27)
[2021-10-21] MEDS ORDERED: Flumazenil 0.1 MG/ML 5 ML MDV IVPUSH PRN (15:27)
[2021-10-21] MEDS ORDERED: Piperacillin/Tazobactam 3.375 GM in Sodium Chloride 0.9% 100 ML IV SCH (15:30)
[2021-10-21] MEDS ORDERED: D5 1/2 NS w/ 20 mEq/L KCl 1,000 ML IV SCH (18:15)
[2021-10-21] MEDS ORDERED: Latanoprost 0.005% Ophth Soln 2.5 ML Bottle EYEBOTH SCH (20:00)
[2021-10-21] MEDS: Dorzolamide/Timolol 2%-0.5% Ophth Soln 10 ML Bottle EYEBOTH SCH (20:22)
[2021-10-21] MEDS: Melatonin 3 MG Tab PO SCH ×2 (20:23→20:27)
[2021-10-22] MEDS: Hypromellose 0.3% Ophth Soln 15 ML Bottle EYEBOTH SCH ×4 (00:17→12:15)
[2021-10-22] MEDS: Piperacillin/Tazobactam 2.25 GM in Sodium Chloride 0.9% 100 ML IV SCH ×3 (00:17→11:26)
[2021-10-22] MEDS: Insulin Regular, Human 100 Units/ML 3 ML Vial SUBCUT SCH ×3 (02:47→12:15)
[2021-10-22] MEDS: Mineral Oil/Petrolatum,White Crm 454 GM Jar TOP SCH ×2 (02:48→08:11)
[2021-10-22 07:09] LABS: CHLORIDE,CL 122 mmol/L (98-107); SODIUM,NA 156 mmol/L (136-145)
[2021-10-22 07:12] LABS: ANION GAP 17.5 mmol/L (5-15)
[2021-10-22] MEDS ORDERED: Potassium Chloride 20 MEQ Tab.ER PO SCH (08:00)
[2021-10-22] MEDS ORDERED: Enoxaparin 30 MG/0.3 ML Syringe SUBCUT SCH ×2 (08:00→12:00)
[2021-10-22] MEDS: Dorzolamide/Timolol 2%-0.5% Ophth Soln 10 ML Bottle EYEBOTH SCH (08:03)
[2021-10-22 10:14] VITALS: PULSE 73
[2021-10-22 10:23] VITALS: BP 101/72
[2021-10-22] MEDS ORDERED: Morphine Oral Concentrate 20 MG/ML 30 ML Bottle PO SCH (12:00)
--- NOTE | 2021-10-22 18:40 | DISCH ---
LOCATION: Acute Care floor at [facility]. ADMITTING DIAGNOSES: 1. Hypokalemia. 2. Nausea and vomiting. 3. Diarrhea. 4. Bowel obstruction. 5. Leukocytosis. 6. Mass of colon. DISCHARGE DIAGNOSES: 1. Hypokalemia. 2. Nausea and vomiting. 3. Diarrhea. 4. Bowel obstruction. 5. Leukocytosis. 6. Mass of colon. HISTORY OF PRESENT ILLNESS: The patient was brought to the emergency room at [facility] via EMS from the long term for low blood sugars, low blood pressure, nausea, vomiting, and diarrhea. The patient really had not been eating and drinking much. He has had low glucose levels at the long term, which was treated with orange juice. Upon arrival of the EMS crew, glucose was 75. The patient had been denying any pain. He really has not been eating. No documentation of fevers. The patient is a poor historian, he is very hard of hearing. BRIEF HOSPITAL COURSE: The patient remained hemodynamically stable and afebrile. The patient had significant pain of the abdomen. Pain medication was given appropriately. The patient remained nauseated with diarrhea. The patient was given Zofran for his nausea, which seem to help some. Blood sugars remained stable. CONSULTATIONS: Case Management. DIET: N.p.o. for now. ACTIVITY: As tolerated. CODE STATUS: Comfort cares. DISCHARGE LABORATORY WORK: 1. CBC: White blood cell count 16.9, hemoglobin 10.5, hematocrit 33.0, platelet count 296,000. 2. CMP: Sodium 156, potassium 2.5, chloride 122, CO2 of 22, anion gap 17.5, BUN 73, creatinine 3.3, GFR 18, glucose 97, calcium 8.2, AST 31, ALT 16, alkaline phosphatase 100, total protein 6.9. DISCHARGE MEDICATIONS: 1. Acetaminophen 650 mg p.o. every 4 hours as needed. 2. Hydrocodone 5 mg/325 mg 1 tablet p.o. every 4 hours as needed. 3. Colace 100 mg p.o. twice daily as needed. 4. Cosopt 1 drop to both eyes twice daily. 5. GenTeal Tears 1 drop to both eyes 5 times a day. 6. Latanoprost 1 drop to both eyes at bedtime. 7. Melatonin 6 mg p.o. daily at bedtime. 8. Mineral oil 1 g topically twice daily. 9. Zofran 4 mg p.o. every 4 hours as needed. 10.Potassium chloride 20 mEq p.o. daily. REVIEW OF SYSTEMS: The patient is a poor historian, see HPI. DISCHARGE PHYSICAL EXAMINATION: Vital Signs: Temperature 97.2, pulse 73, blood pressure 101/72, respiratory rate 16, oxygen saturation 95% on room air. Skin: See nursing documentation for open areas. Respiratory: Lungs are decreased, but clear throughout. Cardiovascular: Regular rate and rhythm, no murmur. Abdomen: Significantly tender and painful throughout. Bowel sounds hypoactive. Abdomen is soft. Extremities: No edema. Neurological: The patient with severe dementia, poor historian. The patient is alert. ASSESSMENT: 1. Small-bowel obstruction secondary to colonic mass. 2. Nausea and vomiting. 3. Diarrhea. 4. Hypokalemia. 5. Abdominal pain. This 86-year-old male patient was admitted to the Acute Care Floor at [facility] for the above diagnoses. Given the patient's CT findings of the colonic mass and obstruction, the patient is not a surgical candidate. I talked at length with the patient's daughter, Kassidy and family decision was made for comfort cares and hospice and patient will [facility]. The family does not want any aggressive treatment. Thoroughly and extensively discussed the patient's current status. The patient will be discharged today back to [facility] at [facility]. The patient will be transported via [facility] ground ambulance. This patient was seen and examined by me as an [facility] provider. Total time for care and coordination, greater than 30 minutes. TB: 10/22/2021 11:24:29 MODL: 10/22/2021 18:33:25 /[id number]
== END 2021-10-22 16:44 | DRG 394 ==
LOC: VM.ED 12:46 → VM.MS 14:59
PROVIDERS: ADMIT Nurse Practitioner Family; ATTEND Nurse Practitioner Family
DX: K63.89 Other specified diseases of intestine (principal); K56.609 Unspecified intestinal obstruction, unspecified as to partial versus complete obstruction; R11.2 Nausea with vomiting, unspecified; I13.0 Hypertensive heart and chronic kidney disease with heart failure and stage 1 through stage 4 chronic kidney disease, or unspecified chronic kidney disease; K63.9 Disease of intestine, unspecified; E87.6 Hypokalemia; D72.829 Elevated white blood cell count, unspecified; Z66 Do not resuscitate; I73.9 Peripheral vascular disease, unspecified; H91.90 Unspecified hearing loss, unspecified ear; E78.00 Pure hypercholesterolemia, unspecified; I50.9 Heart failure, unspecified; N18.9 Chronic kidney disease, unspecified; Z20.822 Contact with and (suspected) exposure to COVID-19; K21.9 Gastro-esophageal reflux disease without esophagitis; Z89.512 Acquired absence of left leg below knee; E13.42 Other specified diabetes mellitus with diabetic polyneuropathy; Z79.899 Other long term (current) drug therapy; E13.22 Other specified diabetes mellitus with diabetic chronic kidney disease; L89.612 Pressure ulcer of right heel, stage 2; Z79.4 Long term (current) use of insulin; Z51.5 Encounter for palliative care; Z88.8 Allergy status to other drugs, medicaments and biological substances; Z79.82 Long term (current) use of aspirin
CPT/HCPCS: 0241U; 36415; 74176; 80053; 82947; 83605; 83690; 83735; 84132; 85025; 86140; 87040; 93005; 96365; 96366; 96367; 96375; 99285-25; A9270-GY; J1650; J1815-GY; J2060; J2270; J2405; J2543; J2550; J3480; J7030; U0002